=== PATIENT | female | born 1950 | race Caucasian/White ===

== ENCOUNTER 2018-09-14 07:32 | Inpatient (IN) ==
[2018-09-14] MEDS ORDERED: ALBUTEROL/IPRATROPIUM 3 ML NEB RESP TX STA (08:08)
[2018-09-14 08:40] LABS: Basophils # 0.1 10*3/uL (0.0-0.2); Basophils % 0.4 % (0.0-0.8); Eosinophils # 0.1 10*3/uL (0.0-0.87); Eosinophils % 0.4 % (0.00-10.9); Hematocrit 43.2 VOL% (35.7-47.0); Immature Granulocytes % 0.8 %; Immature Granulocytes Absolute 0.14 #; Lymphocytes # 0.9 10*3/uL (1.4-4.0); Mean Corpuscular HGB Conc 32.4 GM/DL (32-36); Mean Corpuscular Hemoglobin 29 PG (27-34); Mean Corpuscular Volume 90.2 FL (87-102); Mean Platelet Volume 10.1 FL (9.6-12.0); Monocytes # 0.9 10*3/uL (0.11-0.8); Monocytes % 5.3 % (1.7-12.7); Neutrophils # 15.1 10*3/uL (1.4-7.4); Neutrophils % 88.1 % (38.7-73.9); Platelet Count 189 T/CUMM (130-400); Red Blood Count 4.79 MC/CUMM (3.8-5.5); Red Cell Distribution Width 13.6 % (9.3-17.3); White Blood Count 17.1 T/CUMM (4-12)
[2018-09-14] MEDS ORDERED: LEVOFLOXACIN INJ 500 MG in PREMIX 1 EACH IV STA (08:40)
[2018-09-14 10:32] LABS: Albumin 3.3 G/DL (3.4-5.0); Bilirubin,Total 1.1 MG/DL (0.2-1.0); Calcium 8.7 MG/DL (8.5-10.1); Osmolality,Calculated 283.8 MOS/KG (273-304); Potassium 3.6 MMOL/L (3.5-5.1); Total Protein 7.5 G/DL (6.4-8.3)
[2018-09-14] MEDS ORDERED: SODIUM CHLORIDE 0.9% 500 ML IV STA ×2 (10:43→12:19)
[2018-09-14] MEDS: NEBIVOLOL 5 MG TABLET PO SCH (11:42)
[2018-09-14] MEDS ORDERED: ACETAMINOPHEN 325 MG TABLET PO PRN (12:50)
[2018-09-14] MEDS ORDERED: ALBUTEROL/IPRATROPIUM 3 ML NEB RESP TX PRN (12:50)
[2018-09-14] MEDS ORDERED: ONDANSETRON 4 MG/2 ML VIAL IV PRN (12:50)
[2018-09-14] MEDS ORDERED: MEROPENEM 1,000 MG in SODIUM CHLORIDE 0.9% 100 ML IV STA (12:50)
[2018-09-14] MEDS: ALBUTEROL/IPRATROPIUM 3 ML NEB RESP TX SCH ×2 (13:02→20:14)
[2018-09-14] MEDS: SODIUM CHLORIDE 0.9% 1,000 ML IV SCH (14:55)
[2018-09-14] MEDS: methylPREDNISolone SOD SUC 40 MG/1 ML VIAL IV SCH (14:58)
[2018-09-14] MEDS: PANTOPRAZOLE 40 MG TABLET PO SCH (14:59)
[2018-09-14 18:19] LABS: Free T4 (Free Thyroxine) 1.16 NG/DL (0.76-1.46); Thyroid Stimulating Hormone 6.69 uIU/ml (0.358-3.74)
[2018-09-14] MEDS: GABAPENTIN 300 MG CAPSULE PO SCH (21:40)
[2018-09-14] MEDS: MEROPENEM 1,000 MG in SODIUM CHLORIDE 0.9% 100 ML IV SCH (21:41)
[2018-09-15] MEDS: ALBUTEROL/IPRATROPIUM 3 ML NEB RESP TX SCH ×4 (01:06→19:16)
[2018-09-15] MEDS: methylPREDNISolone SOD SUC 40 MG/1 ML VIAL IV SCH ×2 (01:10→17:24)
[2018-09-15] MEDS: SODIUM CHLORIDE 0.9% 1,000 ML IV SCH ×2 (02:36→17:25)
[2018-09-15 04:48] LABS: Basophils % 0.3 % (0.0-0.8); Hematocrit 39.7 VOL% (35.7-47.0); Hemoglobin 12.5 GM/DL (12.0-16.0); Immature Granulocytes % 0.7 %; Immature Granulocytes Absolute 0.08 #; Lymphocytes # 0.5 10*3/uL (1.4-4.0); Lymphocytes % 3.9 % (21.3-54.2); Mean Corpuscular HGB Conc 31.5 GM/DL (32-36); Mean Corpuscular Hemoglobin 29 PG (27-34); Mean Corpuscular Volume 91.7 FL (87-102); Mean Platelet Volume 10.2 FL (9.6-12.0); Monocytes # 0.4 10*3/uL (0.11-0.8); Monocytes % 3.3 % (1.7-12.7); Neutrophils % 91.8 % (38.7-73.9); Platelet Count 151 T/CUMM (130-400); Red Blood Count 4.33 MC/CUMM (3.8-5.5); Red Cell Distribution Width 13.9 % (9.3-17.3); White Blood Count 11.9 T/CUMM (4-12)
[2018-09-15 05:04] LABS: Blood Urea Nitrogen 25 MG/DL (7-18); Calcium 8.2 MG/DL (8.5-10.1); Glucose 162 MG/DL (74-106); Osmolality,Calculated 286.4 MOS/KG (273-304); Potassium 4.1 MMOL/L (3.5-5.1); Sodium 140 MMOL/L (136-145); Troponin I < 0.015 NG/ML (0.00-0.045)
[2018-09-15 05:16] LABS: Eosinophils 1 % (0-10); Hypochromasia 1+; Lymphocytes 2 % (20-55); Ovalocytes Slight; Platelet Estimate Adequate; Segmented Neutrophils 95 % (50-85); Total Cells Counted 100
[2018-09-15] MEDS ORDERED: LEVOTHYROXINE 112 MCG TABLET PO SCH (06:30)
[2018-09-15] MEDS: LEVOFLOXACIN INJ 500 MG in PREMIX 1 EACH IV SCH (09:23)
[2018-09-15] MEDS: NEBIVOLOL 5 MG TABLET PO SCH (09:25)
[2018-09-15] MEDS: GABAPENTIN 300 MG CAPSULE PO SCH ×2 (09:25→21:45)
[2018-09-15] MEDS: PANTOPRAZOLE 40 MG TABLET PO SCH (09:25)
[2018-09-15] MEDS ORDERED: ENOXAPARIN 40 MG/0.4 ML SYRINGE SUBCUT ONE (09:41)
[2018-09-15] MEDS: MEROPENEM 1,000 MG in SODIUM CHLORIDE 0.9% 100 ML IV SCH ×2 (10:59→21:46)
[2018-09-16] MEDS: SODIUM CHLORIDE 0.9% 1,000 ML IV SCH ×3 (01:29→14:55)
[2018-09-16] MEDS: methylPREDNISolone SOD SUC 40 MG/1 ML VIAL IV SCH ×2 (01:31→12:11)
[2018-09-16] MEDS: ALBUTEROL/IPRATROPIUM 3 ML NEB RESP TX SCH ×4 (01:53→18:51)
[2018-09-16 04:37] LABS: Basophils % 0.2 % (0.0-0.8); Hematocrit 38.8 VOL% (35.7-47.0); Hemoglobin 12.1 GM/DL (12.0-16.0); Immature Granulocytes Absolute 0.13 #; Lymphocytes # 0.4 10*3/uL (1.4-4.0); Lymphocytes % 3.1 % (21.3-54.2); Mean Corpuscular HGB Conc 31.2 GM/DL (32-36); Mean Corpuscular Hemoglobin 29 PG (27-34); Mean Corpuscular Volume 93.5 FL (87-102); Mean Platelet Volume 10.5 FL (9.6-12.0); Monocytes # 0.4 10*3/uL (0.11-0.8); Monocytes % 3.1 % (1.7-12.7); Neutrophils # 11.5 10*3/uL (1.4-7.4); Neutrophils % 92.6 % (38.7-73.9); Platelet Count 160 T/CUMM (130-400); Red Blood Count 4.15 MC/CUMM (3.8-5.5); Red Cell Distribution Width 13.9 % (9.3-17.3); White Blood Count 12.4 T/CUMM (4-12)
[2018-09-16 04:57] LABS: Calcium 7.9 MG/DL (8.5-10.1); INR 1.1; Osmolality,Calculated 292.1 MOS/KG (273-304); PT Patient Result 11.6 SECS; Partial Thromboplastin Time 27.8 SECS (0-40); Potassium 4.2 MMOL/L (3.5-5.1)
[2018-09-16 05:02] LABS: Hypochromasia 1+; Lymphocytes 2 % (20-55); Ovalocytes Slight; Platelet Estimate Adequate; Segmented Neutrophils 97 % (50-85); Total Cells Counted 100
[2018-09-16] MEDS ORDERED: MEPERIDINE 50 MG/1 ML VIAL IM ONE (08:00)
[2018-09-16] MEDS ORDERED: LIDOCAINE 1% 20 ML VIAL MISC INJ ONE (08:00)
[2018-09-16] MEDS ORDERED: LIDOCAINE 2% VISCOUS 100 ML BOTTLE SWISH/SPIT ONE (08:00)
[2018-09-16] MEDS ORDERED: diphenhydrAMINE 50 MG/1 ML VIAL IM ONE (08:00)
[2018-09-16] MEDS ORDERED: LIDOCAINE 2% 20 ML VIAL RESP TX ONE (08:00)
[2018-09-16] MEDS ORDERED: BENZONATATE 100 MG CAPSULE PO ONE (08:00)
[2018-09-16] MEDS: MEROPENEM 1,000 MG in SODIUM CHLORIDE 0.9% 100 ML IV SCH ×2 (10:42→22:39)
[2018-09-16] MEDS: GABAPENTIN 300 MG CAPSULE PO SCH ×2 (12:10→22:38)
[2018-09-16] MEDS: NEBIVOLOL 5 MG TABLET PO SCH (12:10)
[2018-09-16] MEDS: PANTOPRAZOLE 40 MG TABLET PO SCH (12:10)
[2018-09-16] MEDS: LEVOFLOXACIN INJ 500 MG in PREMIX 1 EACH IV SCH (12:10)
[2018-09-16] MEDS ORDERED: RIVAROXABAN 20 MG TABLET PO SCH (17:00)
[2018-09-17] MEDS: ALBUTEROL/IPRATROPIUM 3 ML NEB RESP TX SCH ×2 (00:20→08:08)
[2018-09-17] MEDS: SODIUM CHLORIDE 0.9% 1,000 ML IV SCH (00:32)
[2018-09-17] MEDS: methylPREDNISolone SOD SUC 40 MG/1 ML VIAL IV SCH (00:33)
[2018-09-17 04:04] VITALS: BP 147/70
[2018-09-17 04:38] LABS: Basophils % 0.2 % (0.0-0.8); Hematocrit 38.8 VOL% (35.7-47.0); Hemoglobin 11.9 GM/DL (12.0-16.0); Immature Granulocytes % 1.5 %; Immature Granulocytes Absolute 0.19 #; Lymphocytes # 0.4 10*3/uL (1.4-4.0); Lymphocytes % 3.2 % (21.3-54.2); Mean Corpuscular HGB Conc 30.7 GM/DL (32-36); Mean Corpuscular Hemoglobin 29 PG (27-34); Mean Corpuscular Volume 94.4 FL (87-102); Mean Platelet Volume 10.6 FL (9.6-12.0); Monocytes # 0.5 10*3/uL (0.11-0.8); Monocytes % 3.8 % (1.7-12.7); Neutrophils # 11.8 10*3/uL (1.4-7.4); Neutrophils % 91.3 % (38.7-73.9); Platelet Count 173 T/CUMM (130-400); Red Blood Count 4.11 MC/CUMM (3.8-5.5)
[2018-09-17 05:03] LABS: Lymphocytes 3 % (20-55); Platelet Estimate Adequate; Polychromasia Few; Segmented Neutrophils 97 % (50-85); Total Cells Counted 100
[2018-09-17 05:06] LABS: Calcium 8.1 MG/DL (8.5-10.1); Osmolality,Calculated 289.3 MOS/KG (273-304); Potassium 4.3 MMOL/L (3.5-5.1)
[2018-09-17] MEDS: NEBIVOLOL 5 MG TABLET PO SCH (09:56)
[2018-09-17] MEDS: LEVOFLOXACIN INJ 500 MG in PREMIX 1 EACH IV SCH (09:56)
[2018-09-17] MEDS: MEROPENEM 1,000 MG in SODIUM CHLORIDE 0.9% 100 ML IV SCH (09:56)
[2018-09-17] MEDS: GABAPENTIN 300 MG CAPSULE PO SCH (09:56)
[2018-09-17] MEDS: PANTOPRAZOLE 40 MG TABLET PO SCH (09:56)
[2018-09-19 11:46] LABS: S. Pneumo Serotype 1 5.6 mcg/mL (>=2.3); S. Pneumo Serotype 10A 10.7 mcg/mL (>=2.9); S. Pneumo Serotype 11A 3.2 mcg/mL (>=2.4); S. Pneumo Serotype 12F 2.2 mcg/mL (>=0.6); S. Pneumo Serotype 14 4.6 mcg/mL (>=7.0); S. Pneumo Serotype 15B 4.1 mcg/mL (>=3.3); S. Pneumo Serotype 2 17.8 mcg/mL (>=1.0); S. Pneumo Serotype 20 3.2 mcg/mL (>=1.3); S. Pneumo Serotype 22F 20.5 mcg/mL (>=7.2); S. Pneumo Serotype 23F 25.4 mcg/mL (>=8.0); S. Pneumo Serotype 3 5.5 mcg/mL (>=1.8); S. Pneumo Serotype 33F 4.3 mcg/mL (>=1.7); S. Pneumo Serotype 7F 8.7 mcg/mL (>=3.2); S. Pneumo Serotype 8 3.5 mcg/mL (>=2.9); S. Pneumo Serotype 9N 6.6 mcg/mL (>=9.2); S. Pneumo Serotype 9V 8.5 mcg/mL (>=2.6)
== END 2018-09-17 11:59 | disposition home or self-care (01) | DRG 178 ==
LOC: N.ED 07:32 → N.EDINP 09:07 → N.2E 12:42
PROVIDERS: ADMIT Internal Medicine; ATTEND Internal Medicine

== ENCOUNTER 2019-02-24 11:51 | Inpatient (IN) ==
[2019-02-24] MEDS ORDERED: ONDANSETRON 4 MG/2 ML VIAL IV PRN (14:57)
[2019-02-24] MEDS ORDERED: ALBUTEROL 2.5 MG/3 ML NEB RESP TX PRN (14:57)
[2019-02-24] MEDS ORDERED: NOREPINEPHRINE 8 MG in SODIUM CHLORIDE 0.9% 242 ML IV SCH (15:00)
[2019-02-24] MEDS ORDERED: SODIUM CHLORIDE 0.9% 1,000 ML IV PRN (15:06)
[2019-02-24 15:57] LABS: Basophils % 0.3 % (0.0-0.8); Eosinophils # 0.1 10*3/uL (0.0-0.87); Eosinophils % 1.6 % (0.00-10.9); Immature Granulocytes % 0.5 %; Immature Granulocytes Absolute 0.04 #; Lymphocytes # 0.7 10*3/uL (1.4-4.0); Lymphocytes % 9.7 % (21.3-54.2); Mean Corpuscular HGB Conc 26.8 GM/DL (32-36); Mean Corpuscular Volume 81.7 FL (87-102); Mean Platelet Volume 10.3 FL (9.6-12.0); Monocytes % 7.2 % (1.7-12.7); NRBC # 0.02 10*3/uL; Neutrophils % 80.7 % (38.7-73.9); Platelet Count 163 T/CUMM (130-400); Red Blood Count 2.19 MC/CUMM (3.8-5.5); Red Cell Distribution Width 16.9 % (9.3-17.3); White Blood Count 7.4 T/CUMM (4-12)
[2019-02-24 16:03] LABS: Hemoglobin 4.8 GM/DL (12.0-16.0)
[2019-02-24 16:04] LABS: Hematocrit 17.9 VOL% (35.7-47.0)
[2019-02-24 16:05] LABS: Hemoglobin 4.8 GM/DL (12.0-16.0)
[2019-02-24 16:06] LABS: Hematocrit 17.9 VOL% (35.7-47.0); INR 1.3; PT Patient Result 13.7 SECS; Partial Thromboplastin Time 29.7 SECS (0-40)
[2019-02-24] MEDS: SODIUM CHLORIDE 0.9% 1,000 ML IV SCH (16:07)
[2019-02-24] MEDS: PANTOPRAZOLE 40 MG VIAL IV SCH ×2 (16:12→23:09)
[2019-02-24 16:34] LABS: Thyroid Stimulating Hormone 6.18 uIU/ml (0.358-3.74)
[2019-02-24 18:04] LABS: Polychromasia Few; Target Cells 1+
[2019-02-24 18:05] LABS: Hypochromasia 2+; Microcytosis 1+
[2019-02-24 18:06] LABS: Platelet Estimate Adequate; Tear Drop Cells Few
[2019-02-24 18:53] LABS: Calcium 8.2 MG/DL (8.5-10.1); Osmolality,Calculated 299.1 MOS/KG (273-304)
[2019-02-24] MEDS ORDERED: ALBUTEROL/IPRATROPIUM 3 ML NEB RESP TX SCH (19:00)
[2019-02-24] MEDS: ALBUTEROL/IPRATROPIUM 3 ML NEB RESP TX SCH (19:15)
[2019-02-24] MEDS: ACETAMINOPHEN 325 MG TABLET PO PRN (23:07)
[2019-02-25] MEDS: ALBUTEROL/IPRATROPIUM 3 ML NEB RESP TX SCH ×4 (01:05→19:34)
[2019-02-25 01:06] LABS: Hematocrit 26.1 VOL% (35.7-47.0); Hemoglobin 7.9 GM/DL (12.0-16.0)
[2019-02-25] MEDS: SODIUM CHLORIDE 0.9% 1,000 ML IV SCH (04:49)
[2019-02-25 05:41] LABS: Basophils % 0.5 % (0.0-0.8); Eosinophils # 0.2 10*3/uL (0.0-0.87); Eosinophils % 2.4 % (0.00-10.9); Hematocrit 25.6 VOL% (35.7-47.0); Hemoglobin 7.8 GM/DL (12.0-16.0); Immature Granulocytes % 0.6 %; Immature Granulocytes Absolute 0.05 #; Lymphocytes # 1.2 10*3/uL (1.4-4.0); Lymphocytes % 14.3 % (21.3-54.2); Mean Corpuscular HGB Conc 30.5 GM/DL (32-36); Mean Corpuscular Volume 82.8 FL (87-102); Mean Platelet Volume 9.8 FL (9.6-12.0); Monocytes % 7.6 % (1.7-12.7); Neutrophils % 74.6 % (38.7-73.9); Platelet Count 166 T/CUMM (130-400); Red Blood Count 3.09 MC/CUMM (3.8-5.5); Red Cell Distribution Width 16.6 % (9.3-17.3)
[2019-02-25 08:49] LABS: Hemoglobin 8.2 GM/DL (12.0-16.0)
[2019-02-25] MEDS ORDERED: FUROSEMIDE 40 MG TABLET PO ONE (09:02)
[2019-02-25] MEDS ORDERED: SODIUM CHLORIDE 0.9% 1,000 ML IV PRN (09:03)
[2019-02-25] MEDS ORDERED: GLUCAGON 1 MG VIAL IM PRN (09:05)
[2019-02-25] MEDS ORDERED: DEXTROSE 10% 25 GM/250 ML BAG IV PRN (09:05)
[2019-02-25 09:12] LABS: Calcium 8.4 MG/DL (8.5-10.1); Osmolality,Calculated 298.8 MOS/KG (273-304)
[2019-02-25] MEDS: NEBIVOLOL 5 MG TABLET PO SCH (10:05)
[2019-02-25] MEDS: PANTOPRAZOLE 40 MG VIAL IV SCH ×2 (10:05→20:27)
[2019-02-25] MEDS: INSULIN REGULAR 100 UNIT/ML SUBCUT SCH ×3 (11:40→21:11)
[2019-02-25] MEDS ORDERED: IMIPRAMINE HCL 10 MG PO PRN (12:01)
[2019-02-25 12:47] LABS: Apearance,Urine CLEAR (Clear); Bacteria,Urine Many /HPF (Few); Bilirubin,Urine Negative (Negative); Blood, Urine Negative (Negative); Glucose,Urine (UA) Negative (Negative); Ketones,Urine Negative (Negative); Mucus,Urine Occasional /LPF (Occasional); Nitrite,Urine Negative (Negative); Protein,Urine Negative; RBC,Urine 1 /HPF (0-4); Squamous Epithelial Cell,Urine Occasional /HPF (0-10); Urine Color Yellow (Yellow); Urine Specific Gravity 1.012 (1.001-1.035); Urine Urobilinogen < 2.0 EU/DL (0.2-1.0); WBC,Urine 29 /HPF (0-6)
[2019-02-25] MEDS: GABAPENTIN 300 MG CAPSULE PO SCH ×2 (13:20→20:27)
[2019-02-25] MEDS: LEVOTHYROXINE 125 MCG TABLET PO SCH (13:20)
[2019-02-25] MEDS: ALLOPURINOL 100 MG TABLET PO SCH (13:20)
[2019-02-25] MEDS: MONTELUKAST 10 MG TABLET PO SCH (13:20)
[2019-02-25] MEDS: ACETAMINOPHEN 325 MG TABLET PO PRN (17:51)
[2019-02-26] MEDS: ALBUTEROL/IPRATROPIUM 3 ML NEB RESP TX SCH ×4 (01:14→19:24)
[2019-02-26 01:54] LABS: Basophils % 0.5 % (0.0-0.8); Eosinophils # 0.2 10*3/uL (0.0-0.87); Eosinophils % 2.9 % (0.00-10.9); Hematocrit 25.3 VOL% (35.7-47.0); Hemoglobin 7.3 GM/DL (12.0-16.0); Immature Granulocytes % 0.8 %; Immature Granulocytes Absolute 0.06 #; Lymphocytes # 1.1 10*3/uL (1.4-4.0); Lymphocytes % 14.1 % (21.3-54.2); Mean Corpuscular HGB Conc 28.9 GM/DL (32-36); Mean Corpuscular Volume 84.3 FL (87-102); Mean Platelet Volume 9.9 FL (9.6-12.0); Monocytes % 7.6 % (1.7-12.7); Neutrophils % 74.1 % (38.7-73.9); Platelet Count 161 T/CUMM (130-400); Red Cell Distribution Width 17.1 % (9.3-17.3); White Blood Count 7.9 T/CUMM (4-12)
[2019-02-26] MEDS ORDERED: SODIUM CHLORIDE 0.9% 1,000 ML IV PRN (02:06)
[2019-02-26 02:11] LABS: Osmolality,Calculated 290.1 MOS/KG (273-304)
[2019-02-26] MEDS: INSULIN REGULAR 100 UNIT/ML SUBCUT SCH ×4 (07:42→22:43)
[2019-02-26] MEDS: MONTELUKAST 10 MG TABLET PO SCH (08:53)
[2019-02-26] MEDS: NEBIVOLOL 5 MG TABLET PO SCH (08:53)
[2019-02-26] MEDS: ALLOPURINOL 100 MG TABLET PO SCH (08:53)
[2019-02-26] MEDS: GABAPENTIN 300 MG CAPSULE PO SCH ×2 (08:53→21:19)
[2019-02-26] MEDS: LEVOTHYROXINE 125 MCG TABLET PO SCH (08:53)
[2019-02-26] MEDS: PANTOPRAZOLE 40 MG VIAL IV SCH ×2 (10:17→21:19)
[2019-02-26 10:47] LABS: Hemoglobin 9.2 GM/DL (12.0-16.0)
[2019-02-26] MEDS: cefTRIAXone 1,000 MG in SYRINGE 1 EACH IV SCH (11:44)
[2019-02-27] MEDS: ALBUTEROL/IPRATROPIUM 3 ML NEB RESP TX SCH ×4 (00:03→19:15)
[2019-02-27 04:55] LABS: Basophils % 0.4 % (0.0-0.8); Eosinophils # 0.2 10*3/uL (0.0-0.87); Eosinophils % 2.9 % (0.00-10.9); Hematocrit 30.8 VOL% (35.7-47.0); Hemoglobin 9.3 GM/DL (12.0-16.0); Immature Granulocytes % 0.6 %; Immature Granulocytes Absolute 0.04 #; Lymphocytes % 13.8 % (21.3-54.2); Mean Corpuscular HGB Conc 30.2 GM/DL (32-36); Mean Corpuscular Volume 84.2 FL (87-102); Mean Platelet Volume 10.2 FL (9.6-12.0); Monocytes % 8.3 % (1.7-12.7); Platelet Count 168 T/CUMM (130-400); Red Blood Count 3.66 MC/CUMM (3.8-5.5); Red Cell Distribution Width 17.3 % (9.3-17.3); White Blood Count 7.2 T/CUMM (4-12)
[2019-02-27 05:20] LABS: Calcium 8.5 MG/DL (8.5-10.1); Osmolality,Calculated 287.8 MOS/KG (273-304)
[2019-02-27] MEDS ORDERED: LACTATED RINGERS 1,000 ML IV SCH (07:00)
[2019-02-27] MEDS ORDERED: LIDOCAINE 100 MG/5 ML SYRINGE ONE (09:00)
[2019-02-27] MEDS ORDERED: PROPOFOL 200 MG/20 ML VIAL IV ONE (09:00)
[2019-02-27] MEDS: MONTELUKAST 10 MG TABLET PO SCH (09:33)
[2019-02-27] MEDS: NEBIVOLOL 5 MG TABLET PO SCH (09:34)
[2019-02-27] MEDS: PANTOPRAZOLE 40 MG VIAL IV SCH ×2 (09:34→21:43)
[2019-02-27] MEDS: GABAPENTIN 300 MG CAPSULE PO SCH ×2 (09:34→21:42)
[2019-02-27] MEDS: ALLOPURINOL 100 MG TABLET PO SCH (09:34)
[2019-02-27] MEDS: LEVOTHYROXINE 125 MCG TABLET PO SCH (09:34)
[2019-02-27] MEDS: INSULIN REGULAR 100 UNIT/ML SUBCUT SCH ×4 (09:36→22:54)
[2019-02-27] MEDS: cefTRIAXone 1,000 MG in SYRINGE 1 EACH IV SCH (12:00)
[2019-02-28] MEDS: ALBUTEROL/IPRATROPIUM 3 ML NEB RESP TX SCH ×2 (01:02→07:15)
[2019-02-28 05:10] LABS: Calcium 8.8 MG/DL (8.5-10.1)
[2019-02-28] MEDS: INSULIN REGULAR 100 UNIT/ML SUBCUT SCH (07:10)
[2019-02-28 08:07] VITALS: BP 161/89
[2019-02-28 08:10] LABS: Basophils # 0.1 10*3/uL (0.0-0.2); Basophils % 0.6 % (0.0-0.8); Eosinophils # 0.3 10*3/uL (0.0-0.87); Hematocrit 34.5 VOL% (35.7-47.0); Hemoglobin 10.2 GM/DL (12.0-16.0); Immature Granulocytes % 0.5 %; Immature Granulocytes Absolute 0.04 #; Lymphocytes # 0.6 10*3/uL (1.4-4.0); Lymphocytes % 7.5 % (21.3-54.2); Mean Corpuscular HGB Conc 29.6 GM/DL (32-36); Mean Corpuscular Volume 85.8 FL (87-102); Mean Platelet Volume 10.3 FL (9.6-12.0); Monocytes % 7.5 % (1.7-12.7); Neutrophils % 80.9 % (38.7-73.9); Platelet Count 185 T/CUMM (130-400); Red Blood Count 4.02 MC/CUMM (3.8-5.5); White Blood Count 8.4 T/CUMM (4-12)
[2019-02-28] MEDS: NEBIVOLOL 5 MG TABLET PO SCH (08:34)
[2019-02-28] MEDS: MONTELUKAST 10 MG TABLET PO SCH (08:35)
[2019-02-28] MEDS: ALLOPURINOL 100 MG TABLET PO SCH (08:35)
[2019-02-28] MEDS: GABAPENTIN 300 MG CAPSULE PO SCH (08:35)
[2019-02-28] MEDS: LEVOTHYROXINE 125 MCG TABLET PO SCH (08:35)
[2019-02-28] MEDS: cefTRIAXone 1,000 MG in SYRINGE 1 EACH IV SCH (08:35)
[2019-02-28] MEDS: PANTOPRAZOLE 40 MG VIAL IV SCH (09:47)
== END 2019-02-28 10:44 | disposition home or self-care (01) | DRG 813 ==
LOC: N.CC 14:12 → SUATTDRO 14:12 → N.2E 02-25 14:11
PROVIDERS: ADMIT Internal Medicine; ATTEND Internal Medicine Geriatric Medicine

== ENCOUNTER 2019-03-01 06:19 | Observation (INO) ==
[2019-03-01 07:02] LABS: Basophils # 0.1 10*3/uL (0.0-0.2); Basophils % 0.4 % (0.0-0.8); Eosinophils # 0.1 10*3/uL (0.0-0.87); Hematocrit 36.1 VOL% (35.7-47.0); Hemoglobin 10.7 GM/DL (12.0-16.0); Immature Granulocytes % 0.5 %; Immature Granulocytes Absolute 0.06 #; Lymphocytes # 0.4 10*3/uL (1.4-4.0); Lymphocytes % 3.3 % (21.3-54.2); Mean Corpuscular HGB Conc 29.6 GM/DL (32-36); Mean Corpuscular Volume 85.3 FL (87-102); Mean Platelet Volume 9.9 FL (9.6-12.0); Monocytes % 5.1 % (1.7-12.7); Neutrophils % 89.7 % (38.7-73.9); Platelet Count 174 T/CUMM (130-400); Red Blood Count 4.23 MC/CUMM (3.8-5.5); White Blood Count 11.7 T/CUMM (4-12)
[2019-03-01] MEDS ORDERED: FUROSEMIDE 100 MG/10 ML VIAL IV STA (07:05)
[2019-03-01] MEDS ORDERED: DILTIAZEM 50 MG/10 ML VIAL IV STA (07:19)
[2019-03-01 07:20] LABS: Eosinophils 1 % (0-10); Lymphocytes 5 % (20-55); Segmented Neutrophils 89 % (50-85); Total Cells Counted 100
[2019-03-01 07:21] LABS: Hypochromasia 1+; Platelet Estimate Normal
[2019-03-01 07:23] LABS: Albumin 3.5 G/DL (3.4-5.0); Calcium 9.3 MG/DL (8.5-10.1); Osmolality,Calculated 286.1 MOS/KG (273-304); Total Protein 6.9 G/DL (6.4-8.3)
[2019-03-01 07:29] LABS: INR 1.1; PT Patient Result 11.8 SECS; Partial Thromboplastin Time 27.8 SECS (0-40)
[2019-03-01] MEDS ORDERED: dilTIAZem Drip 125 MG/125 ML PREMIX IV SCH (07:30)
[2019-03-01 07:31] LABS: ABG Base Excess 3.3 MMOL/L (-2.5-2.5); ABG HCO3 27.4 MMOL/L (20-26); ABG Oxygen Saturation 98.1 % (95-100); ABG PCO2 59.5 MM HG (35-48); ABG PH 7.322 (7.35-7.45)
[2019-03-01] MEDS ORDERED: ONDANSETRON 4 MG/2 ML VIAL IV PRN (11:30)
[2019-03-01] MEDS ORDERED: ACETAMINOPHEN 325 MG TABLET PO PRN (11:30)
[2019-03-01] MEDS ORDERED: IMIPRAMINE HCL 10 MG PO PRN (11:34)
[2019-03-01] MEDS ORDERED: DOXAZOSIN 2 MG TABLET PO SCH (13:00)
[2019-03-01] MEDS: POTASSIUM CHLORIDE 10 MEQ TABLET PO SCH ×2 (14:09→21:06)
[2019-03-01] MEDS: AMOXICILLIN/CLAV 875 MG TABLET PO SCH (14:09)
[2019-03-01] MEDS: DOXAZOSIN 1 MG TABLET PO SCH (14:14)
[2019-03-01] MEDS: SILDENAFIL 20 MG TABLET PO SCH ×2 (14:14→21:16)
[2019-03-01] MEDS: ALBUTEROL/IPRATROPIUM 3 ML NEB RESP TX SCH ×3 (14:14→19:39)
[2019-03-01] MEDS: FUROSEMIDE 40 MG/4 ML VIAL IV SCH (16:28)
[2019-03-01] MEDS: GABAPENTIN 300 MG CAPSULE PO SCH (21:08)
[2019-03-01] MEDS: PANTOPRAZOLE 40 MG TABLET PO SCH (21:11)
[2019-03-01] MEDS: NEBIVOLOL 5 MG TABLET PO SCH (21:16)
[2019-03-01] MEDS: VALSARTAN/HCTZ 160-12.5 MG TABLET PO SCH (21:16)
[2019-03-02] MEDS: AMOXICILLIN/CLAV 875 MG TABLET PO SCH ×2 (00:29→12:33)
[2019-03-02] MEDS: ALBUTEROL/IPRATROPIUM 3 ML NEB RESP TX SCH ×4 (07:20→20:07)
[2019-03-02] MEDS: MONTELUKAST 10 MG TABLET PO SCH (08:51)
[2019-03-02] MEDS: LEVOTHYROXINE 125 MCG TABLET PO SCH (08:51)
[2019-03-02] MEDS: PANTOPRAZOLE 40 MG TABLET PO SCH ×2 (08:54→21:01)
[2019-03-02] MEDS: DOXAZOSIN 1 MG TABLET PO SCH (08:54)
[2019-03-02] MEDS: FUROSEMIDE 40 MG/4 ML VIAL IV SCH ×2 (08:55→16:19)
[2019-03-02] MEDS: NEBIVOLOL 5 MG TABLET PO SCH ×2 (08:55→21:01)
[2019-03-02] MEDS: ALLOPURINOL 100 MG TABLET PO SCH (08:56)
[2019-03-02] MEDS: SILDENAFIL 20 MG TABLET PO SCH ×3 (08:56→21:06)
[2019-03-02] MEDS: GABAPENTIN 300 MG CAPSULE PO SCH ×2 (08:56→21:01)
[2019-03-02] MEDS ORDERED: POTASSIUM CHLORIDE 10 MEQ TABLET PO SCH (09:00)
[2019-03-02 13:13] LABS: Calcium 8.8 MG/DL (8.5-10.1); Osmolality,Calculated 285.1 MOS/KG (273-304)
[2019-03-02] MEDS: POTASSIUM CHLORIDE 20 MEQ TABLET PO PRN ×4 (14:02→21:00)
[2019-03-02] MEDS ORDERED: MAGNESIUM HYDROXIDE SUSP 30 ML UDCUP PO PRN (18:50)
[2019-03-03] MEDS: AMOXICILLIN/CLAV 875 MG TABLET PO SCH ×2 (02:46→12:25)
[2019-03-03] MEDS ORDERED: ALBUTEROL/IPRATROPIUM 3 ML NEB RESP TX ONE (03:17)
[2019-03-03 05:01] LABS: Basophils % 0.5 % (0.0-0.8); Eosinophils # 0.2 10*3/uL (0.0-0.87); Eosinophils % 2.9 % (0.00-10.9); Hematocrit 31.2 VOL% (35.7-47.0); Hemoglobin 9.2 GM/DL (12.0-16.0); Immature Granulocytes % 0.4 %; Immature Granulocytes Absolute 0.02 #; Lymphocytes # 0.6 10*3/uL (1.4-4.0); Lymphocytes % 10.2 % (21.3-54.2); Mean Corpuscular HGB Conc 29.5 GM/DL (32-36); Mean Corpuscular Volume 84.3 FL (87-102); Mean Platelet Volume 9.7 FL (9.6-12.0); Platelet Count 141 T/CUMM (130-400); Red Cell Distribution Width 18.2 % (9.3-17.3); White Blood Count 5.6 T/CUMM (4-12)
[2019-03-03 05:13] LABS: Calcium 8.9 MG/DL (8.5-10.1)
[2019-03-03] MEDS: ALBUTEROL/IPRATROPIUM 3 ML NEB RESP TX SCH (07:44)
[2019-03-03] MEDS: FUROSEMIDE 40 MG/4 ML VIAL IV SCH (09:37)
[2019-03-03] MEDS: SILDENAFIL 20 MG TABLET PO SCH (09:38)
[2019-03-03] MEDS: DOXAZOSIN 1 MG TABLET PO SCH (09:38)
[2019-03-03] MEDS: GABAPENTIN 300 MG CAPSULE PO SCH (09:39)
[2019-03-03] MEDS: ALLOPURINOL 100 MG TABLET PO SCH (09:39)
[2019-03-03] MEDS: POTASSIUM CHLORIDE 20 MEQ TABLET PO PRN (09:39)
[2019-03-03] MEDS: VALSARTAN/HCTZ 160-12.5 MG TABLET PO SCH (09:39)
[2019-03-03] MEDS: MONTELUKAST 10 MG TABLET PO SCH (09:39)
[2019-03-03] MEDS: NEBIVOLOL 5 MG TABLET PO SCH (09:39)
[2019-03-03] MEDS: PANTOPRAZOLE 40 MG TABLET PO SCH (09:39)
[2019-03-03] MEDS: LEVOTHYROXINE 125 MCG TABLET PO SCH (09:39)
[2019-03-03] MEDS: POTASSIUM CHLORIDE 10 MEQ TABLET PO SCH ×2 (12:26→12:29)
[2019-03-03 12:27] VITALS: BP 121/69
[2019-03-03] MEDS ORDERED: POLYETHYLENE GLYCOL POWDER 17 GM PACK PO SCH (21:00)
== END 2019-03-03 13:49 | disposition home health service (06) ==
LOC: EDBD → EDUNIT# → N.ED 06:19 → N.EDINP 06:19 → N.TELES 12:25
PROVIDERS: ADMIT Internal Medicine Geriatric Medicine; ATTEND Internal Medicine Geriatric Medicine

== ENCOUNTER 2019-06-14 10:51 | Inpatient (IN) ==
[2019-06-14] MEDS ORDERED: SODIUM CHLORIDE 0.9% 1,000 ML IV STA (11:14)
[2019-06-14] MEDS ORDERED: ONDANSETRON 4 MG/2 ML VIAL IV STA (11:14)
[2019-06-14] MEDS ORDERED: PANTOPRAZOLE 40 MG VIAL IV STA (11:14)
[2019-06-14 11:43] LABS: Basophils % 0.5 % (0.0-0.8); Eosinophils # 0.1 10*3/uL (0.0-0.87); Eosinophils % 0.8 % (0.00-10.9); Hematocrit 23.8 VOL% (35.7-47.0); Hemoglobin 7.2 GM/DL (12.0-16.0); Immature Granulocytes % 0.7 %; Immature Granulocytes Absolute 0.04 #; Lymphocytes # 0.8 10*3/uL (1.4-4.0); Lymphocytes % 13.9 % (21.3-54.2); Mean Corpuscular HGB Conc 30.3 GM/DL (32-36); Mean Corpuscular Volume 94.8 FL (87-102); Mean Platelet Volume 9.8 FL (9.6-12.0); Monocytes % 7.9 % (1.7-12.7); Neutrophils % 76.2 % (38.7-73.9); Platelet Count 163 T/CUMM (130-400); Red Blood Count 2.51 MC/CUMM (3.8-5.5); Red Cell Distribution Width 19.6 % (9.3-17.3)
[2019-06-14 11:52] LABS: INR 1.1; PT Patient Result 11.7 SECS (9.6-12.2); Partial Thromboplastin Time 27.5 SECS (20.8-36.0)
[2019-06-14 12:04] LABS: Albumin 3.2 G/DL (3.4-5.0); Bilirubin,Total 0.5 MG/DL (0.2-1.0); Calcium 9.4 MG/DL (8.5-10.1); Osmolality,Calculated 289.3 MOS/KG (273-304); Total Protein 6.7 G/DL (6.4-8.3)
[2019-06-14] MEDS ORDERED: SODIUM CHLORIDE 0.9% 1,000 ML IV PRN (13:25)
[2019-06-14] MEDS ORDERED: ONDANSETRON 4 MG/2 ML VIAL IV PRN (13:25)
[2019-06-14] MEDS ORDERED: ACETAMINOPHEN 325 MG TABLET PO PRN (13:25)
[2019-06-14] MEDS ORDERED: PANTOPRAZOLE 40 MG VIAL IV SCH (13:30)
[2019-06-14] MEDS ORDERED: DEXTROSE 50% 25 GM/50 ML VIAL IV PRN (13:40)
[2019-06-14] MEDS ORDERED: GLUCAGON 1 MG VIAL IM PRN (13:40)
[2019-06-14] MEDS: FERROUS SULFATE 325 MG TABLET PO SCH ×2 (17:19→22:13)
[2019-06-14] MEDS: INSULIN REGULAR 100 UNIT/ML SUBCUT SCH ×2 (17:19→22:13)
[2019-06-14 18:28] LABS: Hematocrit 24.4 VOL% (35.7-47.0); Hemoglobin 7.4 GM/DL (12.0-16.0)
[2019-06-14 18:39] LABS: INR 1.1
[2019-06-14] MEDS: ALBUTEROL/IPRATROPIUM 3 ML NEB RESP TX PRN (19:08)
[2019-06-14] MEDS: ROSUVASTATIN 10 MG TABLET PO SCH (22:12)
[2019-06-14] MEDS: GABAPENTIN 300 MG CAPSULE PO SCH (22:13)
[2019-06-14] MEDS: PANTOPRAZOLE 40 MG VIAL IV SCH (22:13)
[2019-06-14 22:51] LABS: Hematocrit 25.8 VOL% (35.7-47.0)
[2019-06-15] MEDS: ALBUTEROL/IPRATROPIUM 3 ML NEB RESP TX PRN ×3 (05:14→16:20)
[2019-06-15 06:31] LABS: Basophils % 0.5 % (0.0-0.8); Eosinophils # 0.1 10*3/uL (0.0-0.87); Eosinophils % 1.8 % (0.00-10.9); Hematocrit 25.6 VOL% (35.7-47.0); Immature Granulocytes % 0.5 %; Immature Granulocytes Absolute 0.03 #; Lymphocytes # 0.7 10*3/uL (1.4-4.0); Lymphocytes % 12.4 % (21.3-54.2); Mean Corpuscular HGB Conc 31.3 GM/DL (32-36); Mean Corpuscular Volume 93.1 FL (87-102); Mean Platelet Volume 10.3 FL (9.6-12.0); Monocytes % 8.3 % (1.7-12.7); Neutrophils % 76.5 % (38.7-73.9); Platelet Count 163 T/CUMM (130-400); Red Blood Count 2.75 MC/CUMM (3.8-5.5); Red Cell Distribution Width 18.8 % (9.3-17.3); White Blood Count 5.6 T/CUMM (4-12)
[2019-06-15 06:42] LABS: Calcium 8.9 MG/DL (8.5-10.1); Osmolality,Calculated 289.1 MOS/KG (273-304)
[2019-06-15] MEDS ORDERED: LEVOTHYROXINE 125 MCG TABLET PO SCH (07:30)
[2019-06-15 08:09] LABS: Hematocrit 25.3 VOL% (35.7-47.0); Hemoglobin 7.8 GM/DL (12.0-16.0)
[2019-06-15] MEDS ORDERED: LEVOTHYROXINE 125 MCG TABLET PO ONE (08:30)
[2019-06-15] MEDS: ALLOPURINOL 100 MG TABLET PO SCH (09:02)
[2019-06-15] MEDS: MONTELUKAST 10 MG TABLET PO SCH (09:02)
[2019-06-15] MEDS: FERROUS SULFATE 325 MG TABLET PO SCH ×3 (09:02→22:43)
[2019-06-15] MEDS: PANTOPRAZOLE 40 MG VIAL IV SCH ×2 (09:02→22:43)
[2019-06-15] MEDS: GABAPENTIN 300 MG CAPSULE PO SCH ×2 (09:02→22:43)
[2019-06-15] MEDS: INSULIN REGULAR 100 UNIT/ML SUBCUT SCH ×4 (09:03→21:35)
[2019-06-15] MEDS ORDERED: SODIUM CHLORIDE 0.9% 1,000 ML IV PRN (13:57)
[2019-06-15] MEDS ORDERED: FUROSEMIDE 20 MG/2 ML VIAL IV ONE (21:19)
[2019-06-15] MEDS: ROSUVASTATIN 10 MG TABLET PO SCH (22:42)
[2019-06-16] MEDS: ALBUTEROL/IPRATROPIUM 3 ML NEB RESP TX PRN ×2 (00:08→07:23)
[2019-06-16 00:45] LABS: Hematocrit 28.9 VOL% (35.7-47.0)
[2019-06-16 05:59] LABS: Basophils % 0.3 % (0.0-0.8); Eosinophils # 0.1 10*3/uL (0.0-0.87); Eosinophils % 2.1 % (0.00-10.9); Hematocrit 28.8 VOL% (35.7-47.0); Immature Granulocytes % 0.7 %; Immature Granulocytes Absolute 0.04 #; Lymphocytes # 0.7 10*3/uL (1.4-4.0); Lymphocytes % 12.1 % (21.3-54.2); Mean Corpuscular HGB Conc 31.3 GM/DL (32-36); Mean Platelet Volume 9.9 FL (9.6-12.0); Monocytes % 8.2 % (1.7-12.7); Neutrophils % 76.6 % (38.7-73.9); Platelet Count 176 T/CUMM (130-400); Red Blood Count 3.13 MC/CUMM (3.8-5.5); Red Cell Distribution Width 17.9 % (9.3-17.3); White Blood Count 6.1 T/CUMM (4-12)
[2019-06-16] MEDS ORDERED: LEVOTHYROXINE 125 MCG TABLET PO SCH (06:30)
[2019-06-16 06:34] LABS: Calcium 8.6 MG/DL (8.5-10.1); Osmolality,Calculated 281.4 MOS/KG (273-304)
[2019-06-16] MEDS ORDERED: LACTATED RINGERS 1,000 ML IV SCH (08:00)
[2019-06-16] MEDS ORDERED: MIDAZOLAM 2 MG/2 ML VIAL ONE (08:05)
[2019-06-16] MEDS: INSULIN REGULAR 100 UNIT/ML SUBCUT SCH ×2 (08:07→12:06)
[2019-06-16] MEDS: GABAPENTIN 300 MG CAPSULE PO SCH (09:59)
[2019-06-16] MEDS: ALLOPURINOL 100 MG TABLET PO SCH (09:59)
[2019-06-16] MEDS: PANTOPRAZOLE 40 MG VIAL IV SCH (09:59)
[2019-06-16] MEDS: MONTELUKAST 10 MG TABLET PO SCH (09:59)
[2019-06-16] MEDS: FERROUS SULFATE 325 MG TABLET PO SCH (09:59)
[2019-06-16] MEDS ORDERED: PROPOFOL 200 MG/20 ML VIAL IV ONE (10:00)
[2019-06-16] MEDS ORDERED: ETOMIDATE 20 MG/10 ML VIAL IV ONE (10:00)
[2019-06-16] MEDS ORDERED: LIDOCAINE 2% 5 ML VIAL ONE (10:00)
[2019-06-16 12:04] VITALS: BP 99/46
== END 2019-06-16 12:06 | disposition home health service (06) | DRG 813 ==
LOC: N.ED 10:51 → N.EDINP 12:37 → N.5E 16:13
PROVIDERS: ADMIT Internal Medicine; ATTEND Internal Medicine

== ENCOUNTER 2021-12-17 11:45 | Inpatient (IN) ==
[2021-12-17] MEDS ORDERED: methylPREDNISolone SOD SUC 125 MG/2 ML VIAL IV STA (12:50)
[2021-12-17] MEDS ORDERED: ALBUTEROL NEB SOLN 5 MG/ML 20 ML/BOTTLE CONT NEB SCH (13:00)
[2021-12-17 13:28] LABS: Arterial Base Excess iSTAT 20 MMOL/L (-2.5-2.5); Arterial Bicarbonate iSTAT 47.2 MMOL/L (20-26); Arterial O2 Saturation iSTAT 85 % (95-100); Arterial PCO2 iSTAT 71 MM HG (35-48); Arterial PO2 iSTAT 52 MM HG (80-95); Arterial Total CO2 iSTAT 49 MMO/L (23-27); Arterial pH iSTAT 7.431 (7.35-7.45)
[2021-12-17 13:32] LABS: Basophils % 0.3 % (0.0-0.8); Eosinophils # 0.1 10*3/uL (0.0-0.87); Eosinophils % 0.8 % (0.00-10.9); Hematocrit 27.7 VOL% (35.7-47.0); Hemoglobin 7.9 GM/DL (12.0-16.0); Immature Granulocytes % 1.1 %; Lymphocytes # 0.4 10*3/uL (1.4-4.0); Lymphocytes % 5.1 % (21.3-54.2); Mean Corpuscular HGB Conc 28.5 GM/DL (32-36); Mean Corpuscular Volume 108.6 FL (87-102); Mean Platelet Volume 10.1 FL (9.6-12.0); Monocytes # 0.5 10*3/uL (0.11-0.8); Monocytes % 5.6 % (1.7-12.7); Neutrophils % 87.1 % (38.7-73.9); Platelet Count 197 T/CUMM (130-400); Red Blood Count 2.55 MC/CUMM (3.8-5.5); Red Cell Distribution Width 17.6 % (9.3-17.3); White Blood Count 8.7 T/CUMM (4-12)
[2021-12-17 13:34] LABS: RBC,Urine 163 /HPF (0-4)
[2021-12-17 13:35] LABS: Bilirubin,Urine Negative (Negative); Blood, Urine Large mg/dL (Negative); Glucose,Urine (UA) Negative (Negative); Ketones,Urine Negative (Negative); Nitrite,Urine Positive (Negative); Protein,Urine >=300 mg/dL (Negative); Urine Appearance Cloudy (Clear); Urine Color Yellow (Yellow); Urine pH 7.5 (4.5-8.0)
[2021-12-17 13:43] LABS: PT Patient Result 11.4 SECS (10.5-12.0); Partial Thromboplastin Time 25.7 SECS (23.8-32.1)
[2021-12-17 13:56] LABS: Anisocytosis 1+
[2021-12-17 13:57] LABS: Macrocytosis 1+; Polychromasia 1+
[2021-12-17 13:58] LABS: Platelet Estimate Adequate; Stomatocytes Slight
[2021-12-17] MEDS ORDERED: cefTRIAXone 2,000 MG in SODIUM CHLORIDE 0.9% 100 ML IV ONE (14:00)
[2021-12-17 14:06] LABS: Albumin 2.9 G/DL (3.4-5.0); Bilirubin,Total 0.5 MG/DL (0.20-1.00); Total Protein 5.8 G/DL (6.4-8.2)
[2021-12-17 14:06] LABS: Barbiturates Screen,Urine Negative (Negative); Benzodiazepines Screen,Urine Negative (Negative); Cannabinoid Screen,Urine Positive (Negative); Opiate Screen,Urine Negative (Negative); Phencyclidine Screen,Urine Negative (Negative)
[2021-12-17] MEDS ORDERED: FUROSEMIDE 40 MG/4 ML VIAL IV STA (14:53)
[2021-12-17] MEDS ORDERED: GLUCAGON 1 MG VIAL IM PRN (15:22)
[2021-12-17] MEDS ORDERED: DOCUSATE SODIUM 100 MG CAPSULE PO PRN (15:22)
[2021-12-17] MEDS ORDERED: DEXTROSE 10% 250 ML BAG IV PRN (15:41)
[2021-12-17] MEDS: methylPREDNISolone SOD SUC 40 MG/1 ML VIAL IV SCH ×2 (16:37→23:56)
[2021-12-17 17:46] LABS: Hematocrit 28.2 VOL% (35.7-47.0); Hemoglobin 8.1 GM/DL (12.0-16.0)
[2021-12-17] MEDS ORDERED: LEVALBUTEROL 1.25 MG/3 ML NEB RESP TX ONE (18:56)
[2021-12-17] MEDS: LEVALBUTEROL 1.25 MG/3 ML NEB RESP TX SCH (19:12)
[2021-12-17] MEDS: PANTOPRAZOLE 40 MG VIAL IV SCH (21:47)
[2021-12-17 22:17] LABS: Hematocrit 26.6 VOL% (35.7-47.0); Hemoglobin 7.7 GM/DL (12.0-16.0)
[2021-12-18] MEDS: LEVALBUTEROL 1.25 MG/3 ML NEB RESP TX SCH ×4 (01:01→19:10)
[2021-12-18 05:21] LABS: Basophils % 0.2 % (0.0-0.8); Hematocrit 27.4 VOL% (35.7-47.0); Hemoglobin 7.9 GM/DL (12.0-16.0); Immature Granulocytes % 1.3 %; Immature Granulocytes Absolute 0.11 #; Lymphocytes # 0.3 10*3/uL (1.4-4.0); Mean Corpuscular HGB Conc 28.8 GM/DL (32-36); Mean Corpuscular Volume 107.9 FL (87-102); Mean Platelet Volume 10.6 FL (9.6-12.0); Monocytes # 0.1 10*3/uL (0.11-0.8); Monocytes % 0.8 % (1.7-12.7); Neutrophils % 94.7 % (38.7-73.9); Platelet Count 228 T/CUMM (130-400); Red Blood Count 2.54 MC/CUMM (3.8-5.5); Red Cell Distribution Width 17.5 % (9.3-17.3); White Blood Count 8.3 T/CUMM (4-12)
[2021-12-18 05:38] LABS: Calcium 9.8 MG/DL (8.5-10.1); Osmolality,Calculated 294.4 MOS/KG (273-304); Potassium 5.5 MMOL/L (3.5-5.1)
[2021-12-18 05:46] LABS: Lymphocytes 8 % (20-55); Total Cells Counted 100
[2021-12-18 05:47] LABS: Macrocytosis 1+; Platelet Estimate Normal; Poikilocytosis Slight
[2021-12-18 05:48] LABS: Tear Drop Cells Few
[2021-12-18] MEDS: ONDANSETRON 4 MG/2 ML VIAL IV PRN (06:20)
[2021-12-18] MEDS ORDERED: SODIUM POLYSTYRENE SULFATE 15 GM/60 ML BOTTLE PO ONE (09:00)
[2021-12-18] MEDS: PANTOPRAZOLE 40 MG VIAL IV SCH ×2 (09:08→21:09)
[2021-12-18] MEDS: methylPREDNISolone SOD SUC 40 MG/1 ML VIAL IV SCH ×3 (09:09→23:54)
[2021-12-18] MEDS: ASCORBIC ACID 500 MG TABLET PO SCH ×2 (09:12→21:07)
[2021-12-18] MEDS: ASPIRIN EC 81 MG TABLET PO SCH (09:12)
[2021-12-18] MEDS: FUROSEMIDE 40 MG/4 ML VIAL IV SCH (09:12)
[2021-12-18] MEDS: NEBIVOLOL 5 MG TABLET PO SCH (09:13)
[2021-12-18] MEDS ORDERED: SODIUM CHLORIDE 0.9% 1,000 ML IV PRN (09:25)
[2021-12-18] MEDS: SILDENAFIL 20 MG TABLET PO SCH ×3 (09:26→22:27)
[2021-12-18] MEDS: cefTRIAXone 1,000 MG in SODIUM CHLORIDE 0.9% 100 ML IV SCH (11:15)
[2021-12-18] MEDS: FLUCONAZOLE 100 MG TABLET PO SCH (11:16)
[2021-12-18] MEDS: MONTELUKAST 10 MG TABLET PO SCH (11:16)
[2021-12-18] MEDS ORDERED: FUROSEMIDE 40 MG/4 ML VIAL IV PRN (17:00)
[2021-12-18] MEDS: CLORAZEPATE 3.75 MG TABLET PO PRN ×2 (18:26→23:56)
[2021-12-18] MEDS: ROSUVASTATIN 10 MG TABLET PO SCH (21:07)
[2021-12-19] MEDS: LEVALBUTEROL 1.25 MG/3 ML NEB RESP TX SCH ×4 (00:10→19:20)
[2021-12-19 05:28] LABS: Basophils % 0.1 % (0.0-0.8); Hematocrit 29.4 VOL% (35.7-47.0); Hemoglobin 8.5 GM/DL (12.0-16.0); Immature Granulocytes % 0.8 %; Immature Granulocytes Absolute 0.07 #; Lymphocytes # 0.2 10*3/uL (1.4-4.0); Lymphocytes % 2.6 % (21.3-54.2); Mean Corpuscular HGB Conc 28.9 GM/DL (32-36); Mean Platelet Volume 11.2 FL (9.6-12.0); Monocytes # 0.2 10*3/uL (0.11-0.8); Neutrophils % 94.5 % (38.7-73.9); Platelet Count 181 T/CUMM (130-400); Red Cell Distribution Width 18.8 % (9.3-17.3); White Blood Count 8.3 T/CUMM (4-12)
[2021-12-19 05:44] LABS: % Iron Saturation 9.1 % (18-50)
[2021-12-19 05:47] LABS: Folate 11.9 NG/ML (5.38-24.0)
[2021-12-19 05:49] LABS: Calcium 9.1 MG/DL (8.5-10.1); Potassium 4.3 MMOL/L (3.5-5.1)
[2021-12-19 05:50] LABS: PT Patient Result 11.4 SECS (10.5-12.0)
[2021-12-19] MEDS: LEVOTHYROXINE 125 MCG TABLET PO SCH (05:51)
[2021-12-19 06:05] LABS: Lymphocytes 5 % (20-55); Metamyelocytes 1 %; Total Cells Counted 100
[2021-12-19 06:06] LABS: Macrocytosis 1+; Tear Drop Cells Slight
[2021-12-19 06:07] LABS: Platelet Estimate Adequate
[2021-12-19 06:19] LABS: Partial Thromboplastin Time < 20.0 SECS (23.8-32.1)
[2021-12-19] MEDS ORDERED: BENZONATATE 100 MG CAPSULE PO ONE (07:30)
[2021-12-19] MEDS ORDERED: MEPERIDINE 50 MG/1 ML VIAL IM ONE (07:30)
[2021-12-19] MEDS ORDERED: diphenhydrAMINE 50 MG/1 ML VIAL IM ONE (07:30)
[2021-12-19] MEDS ORDERED: LIDOCAINE 2% VISCOUS 100 ML BOTTLE SWISH/SPIT ONE (08:00)
[2021-12-19] MEDS ORDERED: LIDOCAINE 1% 20 ML VIAL MISC INJ ONE (08:00)
[2021-12-19] MEDS ORDERED: LIDOCAINE 2% 20 ML VIAL RESP TX ONE (08:00)
[2021-12-19] MEDS ORDERED: MIDAZOLAM 2 MG/2 ML VIAL ONE (08:17)
[2021-12-19] MEDS: ONDANSETRON 4 MG/2 ML VIAL IV PRN (10:46)
[2021-12-19] MEDS: cefTRIAXone 1,000 MG in SODIUM CHLORIDE 0.9% 100 ML IV SCH (10:47)
[2021-12-19] MEDS: PANTOPRAZOLE 40 MG VIAL IV SCH ×2 (10:47→20:45)
[2021-12-19] MEDS: FUROSEMIDE 40 MG/4 ML VIAL IV SCH (10:47)
[2021-12-19] MEDS: SILDENAFIL 20 MG TABLET PO SCH ×3 (12:05→20:43)
[2021-12-19] MEDS: CLORAZEPATE 3.75 MG TABLET PO PRN ×3 (12:48→23:57)
[2021-12-19] MEDS: ASCORBIC ACID 500 MG TABLET PO SCH ×2 (12:53→20:43)
[2021-12-19] MEDS: MONTELUKAST 10 MG TABLET PO SCH (12:53)
[2021-12-19] MEDS: ASPIRIN EC 81 MG TABLET PO SCH (12:53)
[2021-12-19] MEDS: NEBIVOLOL 5 MG TABLET PO SCH (12:54)
[2021-12-19] MEDS: FLUCONAZOLE 100 MG TABLET PO SCH (12:54)
[2021-12-19] MEDS: methylPREDNISolone SOD SUC 40 MG/1 ML VIAL IV SCH ×3 (12:57→23:55)
[2021-12-19] MEDS: ROSUVASTATIN 10 MG TABLET PO SCH (20:43)
[2021-12-20 05:36] LABS: Hematocrit 28.2 VOL% (35.7-47.0); Hemoglobin 8.1 GM/DL (12.0-16.0); Immature Granulocytes % 0.9 %; Immature Granulocytes Absolute 0.06 #; Lymphocytes # 0.2 10*3/uL (1.4-4.0); Lymphocytes % 2.3 % (21.3-54.2); Mean Corpuscular HGB Conc 28.7 GM/DL (32-36); Mean Corpuscular Volume 104.4 FL (87-102); Mean Platelet Volume 10.1 FL (9.6-12.0); Monocytes # 0.1 10*3/uL (0.11-0.8); Monocytes % 1.7 % (1.7-12.7); Neutrophils % 95.1 % (38.7-73.9); Platelet Count 206 T/CUMM (130-400); Red Cell Distribution Width 17.4 % (9.3-17.3); White Blood Count 6.6 T/CUMM (4-12)
[2021-12-20 06:01] LABS: Calcium 9.2 MG/DL (8.5-10.1); Potassium 3.8 MMOL/L (3.5-5.1)
[2021-12-20 06:13] LABS: Band Neutrophils 1 % (0-10); Hypochromia Slight; Lymphocytes 3 % (20-55); Platelet Estimate Adequate; Total Cells Counted 100
[2021-12-20] MEDS: LEVOTHYROXINE 125 MCG TABLET PO SCH (06:25)
[2021-12-20] MEDS: LEVALBUTEROL 1.25 MG/3 ML NEB RESP TX SCH ×4 (07:20→19:00)
[2021-12-20] MEDS: ASCORBIC ACID 500 MG TABLET PO SCH ×2 (09:26→21:41)
[2021-12-20] MEDS: ASPIRIN EC 81 MG TABLET PO SCH (09:26)
[2021-12-20] MEDS: MONTELUKAST 10 MG TABLET PO SCH (09:27)
[2021-12-20] MEDS: FLUCONAZOLE 100 MG TABLET PO SCH (09:27)
[2021-12-20] MEDS: NEBIVOLOL 5 MG TABLET PO SCH (09:27)
[2021-12-20] MEDS: cefTRIAXone 1,000 MG in SODIUM CHLORIDE 0.9% 100 ML IV SCH (09:28)
[2021-12-20] MEDS: PANTOPRAZOLE 40 MG VIAL IV SCH ×2 (09:29→21:42)
[2021-12-20] MEDS: methylPREDNISolone SOD SUC 40 MG/1 ML VIAL IV SCH ×2 (09:29→18:12)
[2021-12-20] MEDS: FUROSEMIDE 40 MG/4 ML VIAL IV SCH (09:30)
[2021-12-20] MEDS: CLORAZEPATE 3.75 MG TABLET PO PRN ×2 (09:50→21:41)
[2021-12-20] MEDS: SILDENAFIL 20 MG TABLET PO SCH ×3 (10:59→21:42)
[2021-12-20] MEDS ORDERED: LEVOFLOXACIN INJ 500 MG/100 ML PREMIX IV ONE (14:00)
[2021-12-20] MEDS: GABAPENTIN 300 MG CAPSULE PO SCH ×2 (14:44→21:41)
[2021-12-20] MEDS: BENZONATATE 100 MG CAPSULE PO SCH ×2 (15:44→21:41)
[2021-12-20] MEDS: FERROUS SULFATE 325 MG TABLET PO SCH ×2 (15:45→21:41)
[2021-12-20] MEDS: guaiFENesin/DM ER 600-30 MG TABLET PO SCH (21:41)
[2021-12-20] MEDS: ROSUVASTATIN 10 MG TABLET PO SCH (21:42)
[2021-12-21] MEDS: methylPREDNISolone SOD SUC 40 MG/1 ML VIAL IV SCH ×3 (00:05→16:31)
[2021-12-21] MEDS: LEVALBUTEROL 1.25 MG/3 ML NEB RESP TX SCH ×4 (01:00→19:10)
[2021-12-21] MEDS: SILDENAFIL 20 MG TABLET PO SCH ×3 (05:53→22:03)
[2021-12-21] MEDS: LEVOTHYROXINE 125 MCG TABLET PO SCH (05:53)
[2021-12-21 06:26] LABS: Basophils % 0.2 % (0.0-0.8); Hematocrit 26.2 VOL% (35.7-47.0); Hemoglobin 7.6 GM/DL (12.0-16.0); Immature Granulocytes % 0.7 %; Immature Granulocytes Absolute 0.04 #; Lymphocytes # 0.1 10*3/uL (1.4-4.0); Lymphocytes % 1.5 % (21.3-54.2); Mean Corpuscular Volume 104.4 FL (87-102); Mean Platelet Volume 10.4 FL (9.6-12.0); Monocytes # 0.2 10*3/uL (0.11-0.8); Monocytes % 3.1 % (1.7-12.7); Neutrophils % 94.5 % (38.7-73.9); Platelet Count 196 T/CUMM (130-400); Red Blood Count 2.51 MC/CUMM (3.8-5.5); Red Cell Distribution Width 16.8 % (9.3-17.3); White Blood Count 5.8 T/CUMM (4-12)
[2021-12-21 06:38] LABS: Calcium 9.1 MG/DL (8.5-10.1); Osmolality,Calculated 308.3 MOS/KG (273-304); Potassium 3.5 MMOL/L (3.5-5.1)
[2021-12-21 06:48] LABS: Hypochromia Slight; Lymphocytes 3 % (20-55); Platelet Estimate Adequate; Total Cells Counted 100
[2021-12-21] MEDS ORDERED: SODIUM CHLORIDE 0.9% 1,000 ML IV PRN (07:53)
[2021-12-21] MEDS ORDERED: FUROSEMIDE 20 MG/2 ML VIAL IV ONE (07:55)
[2021-12-21] MEDS: FUROSEMIDE 40 MG/4 ML VIAL IV SCH (08:36)
[2021-12-21] MEDS: PANTOPRAZOLE 40 MG VIAL IV SCH ×2 (08:37→22:04)
[2021-12-21] MEDS: ASPIRIN EC 81 MG TABLET PO SCH (08:37)
[2021-12-21] MEDS: ASCORBIC ACID 500 MG TABLET PO SCH ×2 (08:37→22:04)
[2021-12-21] MEDS: guaiFENesin/DM ER 600-30 MG TABLET PO SCH ×2 (08:38→22:04)
[2021-12-21] MEDS: BENZONATATE 100 MG CAPSULE PO SCH ×3 (08:38→22:03)
[2021-12-21] MEDS: NEBIVOLOL 5 MG TABLET PO SCH (08:38)
[2021-12-21] MEDS: MONTELUKAST 10 MG TABLET PO SCH (08:38)
[2021-12-21] MEDS: FLUCONAZOLE 100 MG TABLET PO SCH (08:39)
[2021-12-21] MEDS: GABAPENTIN 300 MG CAPSULE PO SCH ×2 (08:39→22:04)
[2021-12-21] MEDS: FERROUS SULFATE 325 MG TABLET PO SCH ×3 (08:39→22:03)
[2021-12-21] MEDS ORDERED: POLYETHYLENE GLYCOL POWDER 17 GM PACK PO PRN (10:09)
[2021-12-21] MEDS: CLORAZEPATE 3.75 MG TABLET PO PRN ×2 (11:28→22:03)
[2021-12-21] MEDS: LEVOFLOXACIN INJ 250 MG/50 ML PREMIX IV SCH (14:37)
[2021-12-21] MEDS: ROSUVASTATIN 10 MG TABLET PO SCH (22:04)
[2021-12-22] MEDS: LEVALBUTEROL 1.25 MG/3 ML NEB RESP TX SCH ×4 (00:46→19:15)
[2021-12-22] MEDS: methylPREDNISolone SOD SUC 40 MG/1 ML VIAL IV SCH ×3 (00:54→15:00)
[2021-12-22 05:14] LABS: Basophils % 0.2 % (0.0-0.8); Hematocrit 29.2 VOL% (35.7-47.0); Hemoglobin 8.7 GM/DL (12.0-16.0); Immature Granulocytes % 0.6 %; Immature Granulocytes Absolute 0.04 #; Lymphocytes # 0.1 10*3/uL (1.4-4.0); Lymphocytes % 1.5 % (21.3-54.2); Mean Corpuscular HGB Conc 29.8 GM/DL (32-36); Mean Corpuscular Volume 100.7 FL (87-102); Mean Platelet Volume 10.5 FL (9.6-12.0); Monocytes # 0.2 10*3/uL (0.11-0.8); Monocytes % 2.9 % (1.7-12.7); Neutrophils % 94.8 % (38.7-73.9); Platelet Count 180 T/CUMM (130-400); Red Cell Distribution Width 16.2 % (9.3-17.3); White Blood Count 6.6 T/CUMM (4-12)
[2021-12-22 05:33] LABS: Calcium 9.3 MG/DL (8.5-10.1); Osmolality,Calculated 310.5 MOS/KG (273-304); Potassium 3.6 MMOL/L (3.5-5.1)
[2021-12-22 05:35] LABS: Hypochromia Slight; Platelet Estimate Adequate; Total Cells Counted 100
[2021-12-22] MEDS: SILDENAFIL 20 MG TABLET PO SCH ×3 (05:48→21:47)
[2021-12-22] MEDS: LEVOTHYROXINE 125 MCG TABLET PO SCH (05:48)
[2021-12-22] MEDS: guaiFENesin/DM ER 600-30 MG TABLET PO SCH ×2 (09:27→21:47)
[2021-12-22] MEDS: ASPIRIN EC 81 MG TABLET PO SCH (09:28)
[2021-12-22] MEDS: FLUCONAZOLE 100 MG TABLET PO SCH (09:28)
[2021-12-22] MEDS: FERROUS SULFATE 325 MG TABLET PO SCH ×3 (09:28→21:47)
[2021-12-22] MEDS: BENZONATATE 100 MG CAPSULE PO SCH ×3 (09:28→21:46)
[2021-12-22] MEDS: NEBIVOLOL 5 MG TABLET PO SCH (09:28)
[2021-12-22] MEDS: ASCORBIC ACID 500 MG TABLET PO SCH ×2 (09:28→21:46)
[2021-12-22] MEDS: MONTELUKAST 10 MG TABLET PO SCH (09:28)
[2021-12-22] MEDS: GABAPENTIN 300 MG CAPSULE PO SCH ×2 (09:28→21:46)
[2021-12-22] MEDS: FUROSEMIDE 40 MG/4 ML VIAL IV SCH (09:29)
[2021-12-22] MEDS: PANTOPRAZOLE 40 MG VIAL IV SCH ×2 (09:29→21:47)
[2021-12-22] MEDS: LEVOFLOXACIN INJ 250 MG/50 ML PREMIX IV SCH (14:53)
[2021-12-22] MEDS: CLORAZEPATE 3.75 MG TABLET PO PRN (15:08)
[2021-12-22] MEDS: ROSUVASTATIN 10 MG TABLET PO SCH (21:46)
[2021-12-23] MEDS: methylPREDNISolone SOD SUC 40 MG/1 ML VIAL IV SCH ×3 (00:44→21:16)
[2021-12-23] MEDS: LEVALBUTEROL 1.25 MG/3 ML NEB RESP TX SCH ×4 (00:45→19:21)
[2021-12-23 05:15] LABS: Basophils % 0.2 % (0.0-0.8); Hematocrit 29.2 VOL% (35.7-47.0); Hemoglobin 8.8 GM/DL (12.0-16.0); Immature Granulocytes % 1.2 %; Immature Granulocytes Absolute 0.08 #; Lymphocytes # 0.1 10*3/uL (1.4-4.0); Lymphocytes % 1.1 % (21.3-54.2); Mean Corpuscular HGB Conc 30.1 GM/DL (32-36); Mean Corpuscular Volume 100.3 FL (87-102); Mean Platelet Volume 10.7 FL (9.6-12.0); Monocytes # 0.3 10*3/uL (0.11-0.8); Monocytes % 3.8 % (1.7-12.7); Neutrophils % 93.7 % (38.7-73.9); Platelet Count 194 T/CUMM (130-400); Red Blood Count 2.91 MC/CUMM (3.8-5.5); Red Cell Distribution Width 15.9 % (9.3-17.3); White Blood Count 6.7 T/CUMM (4-12)
[2021-12-23 05:38] LABS: Band Neutrophils 1 % (0-10); Lymphocytes 3 % (20-55); Total Cells Counted 100
[2021-12-23 05:39] LABS: Calcium 9.4 MG/DL (8.5-10.1); Macrocytosis Slight; Osmolality,Calculated 308.8 MOS/KG (273-304); Ovalocytes Slight; Platelet Estimate Adequate; Potassium 3.6 MMOL/L (3.5-5.1); Tear Drop Cells Slight
[2021-12-23] MEDS: LEVOTHYROXINE 125 MCG TABLET PO SCH (05:54)
[2021-12-23] MEDS: SILDENAFIL 20 MG TABLET PO SCH ×3 (05:54→21:17)
[2021-12-23] MEDS: LEVOTHYROXINE 25 MCG TABLET PO SCH (05:54)
[2021-12-23] MEDS ORDERED: GLUCAGON 1 MG VIAL IM PRN (09:05)
[2021-12-23] MEDS ORDERED: DEXTROSE 50% 25 GM/50 ML VIAL IV PRN ×2 (09:05→09:06)
[2021-12-23] MEDS ORDERED: INSULIN REGULAR 100 UNIT/ML IV ONE (09:08)
[2021-12-23] MEDS: FUROSEMIDE 40 MG/4 ML VIAL IV SCH (09:30)
[2021-12-23] MEDS: PANTOPRAZOLE 40 MG VIAL IV SCH ×2 (09:30→21:16)
[2021-12-23] MEDS ORDERED: POTASSIUM CHLORIDE RIDER 10 MEQ/100 ML PREMIX IV PRN (09:33)
[2021-12-23] MEDS ORDERED: POTASSIUM CHLORIDE 20 MEQ TABLET PO PRN (09:33)
[2021-12-23] MEDS: INSULIN LISPRO 100 UNIT/ML SUBCUT SCH ×4 (10:30→21:17)
[2021-12-23] MEDS ORDERED: INSULIN REGULAR 100 UNIT/ML SUBCUT SCH (11:30)
[2021-12-23] MEDS: ASPIRIN EC 81 MG TABLET PO SCH (12:47)
[2021-12-23] MEDS: ASCORBIC ACID 500 MG TABLET PO SCH ×2 (12:47→21:17)
[2021-12-23] MEDS: FERROUS SULFATE 325 MG TABLET PO SCH ×3 (12:48→21:17)
[2021-12-23] MEDS: LEVOFLOXACIN 250 MG TABLET PO SCH (12:48)
[2021-12-23] MEDS: NEBIVOLOL 5 MG TABLET PO SCH (12:48)
[2021-12-23] MEDS: FLUCONAZOLE 100 MG TABLET PO SCH (12:48)
[2021-12-23] MEDS: guaiFENesin/DM ER 600-30 MG TABLET PO SCH ×2 (12:48→21:18)
[2021-12-23] MEDS: BENZONATATE 100 MG CAPSULE PO SCH ×3 (12:49→21:17)
[2021-12-23] MEDS: GABAPENTIN 300 MG CAPSULE PO SCH ×2 (12:49→21:17)
[2021-12-23] MEDS: MONTELUKAST 10 MG TABLET PO SCH (12:50)
[2021-12-23] MEDS: FERRIC GLUCONATE COMPLEX 125 MG in SODIUM CHLORIDE 0.9% 100 ML IV SCH (12:51)
[2021-12-23 20:04] LABS: Amorphous Crystals,Urine Occasional /HPF (Few); Bacteria,Urine Occasional /HPF (Few); Hyaline Casts,Urine 1 /LPF (0-3); RBC,Urine 28 /HPF (0-4); Squamous Epithelial Cell,Urine Occasional /HPF (0-10)
[2021-12-23 20:05] LABS: Bilirubin,Urine Negative (Negative); Blood, Urine Moderate mg/dL (Negative); Glucose,Urine (UA) 100 mg/dL (Negative); Ketones,Urine Negative (Negative); Nitrite,Urine Negative (Negative); Protein,Urine Negative (Negative); Urine Appearance Clear (Clear); Urine Color Yellow (Yellow); Urine Urobilinogen 0.2 eU/dL (<2.0)
[2021-12-23] MEDS: ROSUVASTATIN 10 MG TABLET PO SCH (21:17)
[2021-12-24] MEDS: LEVALBUTEROL 1.25 MG/3 ML NEB RESP TX SCH ×4 (00:06→19:52)
[2021-12-24 05:13] LABS: Basophils % 0.1 % (0.0-0.8); Hematocrit 29.6 VOL% (35.7-47.0); Hemoglobin 8.9 GM/DL (12.0-16.0); Immature Granulocytes % 1.1 %; Immature Granulocytes Absolute 0.11 #; Lymphocytes # 0.1 10*3/uL (1.4-4.0); Mean Corpuscular HGB Conc 30.1 GM/DL (32-36); Mean Corpuscular Volume 101.4 FL (87-102); Mean Platelet Volume 10.6 FL (9.6-12.0); Monocytes # 0.3 10*3/uL (0.11-0.8); Monocytes % 3.1 % (1.7-12.7); Neutrophils % 94.7 % (38.7-73.9); Platelet Count 203 T/CUMM (130-400); Red Blood Count 2.92 MC/CUMM (3.8-5.5); Red Cell Distribution Width 15.7 % (9.3-17.3); White Blood Count 9.9 T/CUMM (4-12)
[2021-12-24 05:25] LABS: Calcium 9.1 MG/DL (8.5-10.1); Osmolality,Calculated 301.3 MOS/KG (273-304); Potassium 3.9 MMOL/L (3.5-5.1)
[2021-12-24 05:42] LABS: Hypochromia Slight; Lymphocytes 1 % (20-55); Macrocytosis Slight; Platelet Estimate Adequate; Total Cells Counted 100
[2021-12-24] MEDS: LEVOTHYROXINE 125 MCG TABLET PO SCH (05:53)
[2021-12-24] MEDS: SILDENAFIL 20 MG TABLET PO SCH ×2 (06:02→14:58)
[2021-12-24] MEDS ORDERED: FUROSEMIDE 20 MG TABLET PO SCH (09:00)
[2021-12-24] MEDS: INSULIN LISPRO 100 UNIT/ML SUBCUT SCH ×4 (10:45→21:06)
[2021-12-24] MEDS: FLUCONAZOLE 100 MG TABLET PO SCH (10:46)
[2021-12-24] MEDS: ASPIRIN EC 81 MG TABLET PO SCH (10:46)
[2021-12-24] MEDS: NEBIVOLOL 5 MG TABLET PO SCH (10:46)
[2021-12-24] MEDS: FERROUS SULFATE 325 MG TABLET PO SCH ×3 (10:46→21:05)
[2021-12-24] MEDS: LEVOFLOXACIN 250 MG TABLET PO SCH (10:47)
[2021-12-24] MEDS: guaiFENesin/DM ER 600-30 MG TABLET PO SCH (10:47)
[2021-12-24] MEDS: GABAPENTIN 300 MG CAPSULE PO SCH ×2 (10:47→21:05)
[2021-12-24] MEDS: BENZONATATE 100 MG CAPSULE PO SCH ×3 (10:48→21:06)
[2021-12-24] MEDS: MONTELUKAST 10 MG TABLET PO SCH (10:48)
[2021-12-24] MEDS: ASCORBIC ACID 500 MG TABLET PO SCH ×2 (10:48→21:05)
[2021-12-24] MEDS: methylPREDNISolone SOD SUC 40 MG/1 ML VIAL IV SCH ×2 (11:52→18:00)
[2021-12-24] MEDS: FERRIC GLUCONATE COMPLEX 125 MG in SODIUM CHLORIDE 0.9% 100 ML IV SCH (11:52)
[2021-12-24] MEDS: PANTOPRAZOLE 40 MG VIAL IV SCH ×2 (11:53→21:04)
[2021-12-24] MEDS ORDERED: SODIUM CHLORIDE 0.9% 500 ML IV SCH (13:00)
[2021-12-24 14:30] LABS: Arterial Base Excess iSTAT 19 MMOL/L (-2.5-2.5); Arterial Bicarbonate iSTAT 46.1 MMOL/L (20-26); Arterial O2 Saturation iSTAT 74 % (95-100); Arterial PCO2 iSTAT 71 MM HG (35-48); Arterial PO2 iSTAT 41 MM HG (80-95); Arterial Total CO2 iSTAT 48 MMO/L (23-27); Arterial pH iSTAT 7.422 (7.35-7.45)
[2021-12-24 14:53] LABS: Arterial Base Excess iSTAT 19 MMOL/L (-2.5-2.5); Arterial Bicarbonate iSTAT 45.6 MMOL/L (20-26); Arterial O2 Saturation iSTAT 91 % (95-100); Arterial PCO2 iSTAT 69 MM HG (35-48); Arterial PO2 iSTAT 64 MM HG (80-95); Arterial Total CO2 iSTAT 48 MMO/L (23-27); Arterial pH iSTAT 7.431 (7.35-7.45)
[2021-12-24] MEDS ORDERED: INSULIN GLARGINE 100 UNIT/ML SUBCUT SCH (15:00)
[2021-12-24] MEDS ORDERED: FUROSEMIDE 40 MG/4 ML VIAL IV ONE (15:00)
[2021-12-24 15:27] LABS: Basophils % 0.1 % (0.0-0.8); Hematocrit 30.4 VOL% (35.7-47.0); Hemoglobin 9.2 GM/DL (12.0-16.0); Lymphocytes # 0.1 10*3/uL (1.4-4.0); Lymphocytes % 1.2 % (21.3-54.2); Mean Corpuscular HGB Conc 30.3 GM/DL (32-36); Mean Platelet Volume 11.1 FL (9.6-12.0); Monocytes # 0.4 10*3/uL (0.11-0.8); Monocytes % 4.1 % (1.7-12.7); Neutrophils % 93.9 % (38.7-73.9); Platelet Count 171 T/CUMM (130-400); Red Blood Count 3.04 MC/CUMM (3.8-5.5); Red Cell Distribution Width 16.1 % (9.3-17.3); White Blood Count 9.5 T/CUMM (4-12)
[2021-12-24 15:34] LABS: Bilirubin,Total 0.6 MG/DL (0.20-1.00); Calcium 9.4 MG/DL (8.5-10.1); Osmolality,Calculated 299.4 MOS/KG (273-304); Potassium 3.9 MMOL/L (3.5-5.1); Total Protein 5.8 G/DL (6.4-8.2)
[2021-12-24 15:48] LABS: Albumin 3.1 G/DL (3.4-5.0); Total Protein 5.8 G/DL (6.4-8.2)
[2021-12-24] MEDS: PIPERACILLIN/TAZOBACTAM 3,375 MG in SODIUM CHLORIDE 0.9% 100 ML IV SCH (15:50)
[2021-12-24 16:00] LABS: INR 1.1; PT Patient Result 12.5 SECS (10.5-12.0)
[2021-12-24 16:23] LABS: Glucose,Pleural Fluid 228 MG/DL; LDH,Body Fluid 165 U/L; Total Protein,Body Fluid < 2.0 G/DL
[2021-12-24 17:06] LABS: Lymphocytes,Pleural Fluid 94 %; Monocytes,Pleural Fluid 4 %; Neutrophils,Pleural Fluid 2 %; RBC,Pleural Fluid 1769 T/CUMM
[2021-12-24] MEDS: BUDESONIDE 0.5 MG/2 ML NEB RESP TX SCH (19:30)
[2021-12-24] MEDS: ALBUTEROL/IPRATROPIUM 3 ML NEB RESP TX SCH (19:30)
[2021-12-24] MEDS: DORNASE ALFA 2.5 MG/2.5 ML VIAL RESP TX SCH (20:04)
[2021-12-24] MEDS ORDERED: LEVALBUTEROL 1.25 MG/3 ML NEB RESP TX PRN (22:07)
[2021-12-25] MEDS: ALBUTEROL/IPRATROPIUM 3 ML NEB RESP TX SCH ×4 (00:11→19:07)
[2021-12-25] MEDS: PIPERACILLIN/TAZOBACTAM 3,375 MG in SODIUM CHLORIDE 0.9% 100 ML IV SCH ×3 (02:14→18:15)
[2021-12-25] MEDS: guaiFENesin/DM ER 600-30 MG TABLET PO SCH ×3 (02:16→20:06)
[2021-12-25] MEDS: methylPREDNISolone SOD SUC 40 MG/1 ML VIAL IV SCH ×5 (02:16→23:13)
[2021-12-25] MEDS: ROSUVASTATIN 10 MG TABLET PO SCH ×2 (02:21→20:07)
[2021-12-25] MEDS: SILDENAFIL 20 MG TABLET PO SCH ×4 (02:22→21:10)
[2021-12-25 03:39] LABS: Basophils % 0.1 % (0.0-0.8); Hematocrit 31.1 VOL% (35.7-47.0); Hemoglobin 9.2 GM/DL (12.0-16.0); Immature Granulocytes % 1.1 %; Lymphocytes # 0.1 10*3/uL (1.4-4.0); Lymphocytes % 1.5 % (21.3-54.2); Mean Corpuscular HGB Conc 29.6 GM/DL (32-36); Mean Corpuscular Volume 101.3 FL (87-102); Mean Platelet Volume 10.4 FL (9.6-12.0); Monocytes # 0.2 10*3/uL (0.11-0.8); Monocytes % 2.1 % (1.7-12.7); Neutrophils % 95.2 % (38.7-73.9); Platelet Count 200 T/CUMM (130-400); Red Blood Count 3.07 MC/CUMM (3.8-5.5); Red Cell Distribution Width 15.9 % (9.3-17.3); White Blood Count 9.3 T/CUMM (4-12)
[2021-12-25 04:01] LABS: Band Neutrophils 1 % (0-10); Lymphocytes 3 % (20-55); Total Cells Counted 100
[2021-12-25 04:02] LABS: Hypochromia Slight; Macrocytosis Slight; Platelet Estimate Normal; Tear Drop Cells Slight
[2021-12-25 04:12] LABS: Blood Urea Nitrogen 59 MG/DL (7-18); Calcium 8.9 MG/DL (8.5-10.1); Carbon Dioxide 48 MMOL/L (21-32); Chloride 95 MMOL/L (98-107); Glucose 178 MG/DL (74-106); Osmolality,Calculated 299.4 MOS/KG (273-304); Sodium 140 MMOL/L (136-145)
[2021-12-25 04:52] LABS: INR 1.2; PT Patient Result 12.8 SECS (10.5-12.0); Partial Thromboplastin Time 25.7 SECS (23.8-32.1)
[2021-12-25] MEDS: LEVOTHYROXINE 25 MCG TABLET PO SCH (07:17)
[2021-12-25] MEDS: LEVOTHYROXINE 125 MCG TABLET PO SCH (07:18)
[2021-12-25] MEDS: BUDESONIDE 0.5 MG/2 ML NEB RESP TX SCH ×2 (07:52→19:07)
[2021-12-25] MEDS: INSULIN GLARGINE 100 UNIT/ML SUBCUT SCH (07:55)
[2021-12-25] MEDS: INSULIN LISPRO 100 UNIT/ML SUBCUT SCH ×4 (07:55→20:21)
[2021-12-25] MEDS ORDERED: LIDOCAINE 2% 20 ML VIAL RESP TX ONE (08:00)
[2021-12-25] MEDS ORDERED: LIDOCAINE 1% 20 ML VIAL MISC INJ ONE (08:00)
[2021-12-25] MEDS ORDERED: LIDOCAINE 2% VISCOUS 100 ML BOTTLE SWISH/SPIT ONE (08:00)
[2021-12-25] MEDS: DORNASE ALFA 2.5 MG/2.5 ML VIAL RESP TX SCH ×2 (08:02→19:23)
[2021-12-25] MEDS: ASCORBIC ACID 500 MG TABLET PO SCH ×2 (09:00→20:07)
[2021-12-25] MEDS: FERROUS SULFATE 325 MG TABLET PO SCH ×3 (09:00→20:07)
[2021-12-25] MEDS ORDERED: INSULIN GLARGINE 100 UNIT/ML SUBCUT SCH (09:00)
[2021-12-25] MEDS ORDERED: DAPAGLIFLOZIN 10 MG TABLET PO SCH (09:00)
[2021-12-25] MEDS: BENZONATATE 100 MG CAPSULE PO SCH ×3 (09:00→20:06)
[2021-12-25 12:22] LABS: Arterial Base Excess iSTAT 22 MMOL/L (-2.5-2.5); Arterial Bicarbonate iSTAT 51.8 MMOL/L (20-26); Arterial O2 Saturation iSTAT 99 % (95-100); Arterial PCO2 iSTAT 99 MM HG (35-48); Arterial PO2 iSTAT 177 MM HG (80-95); Arterial Total CO2 iSTAT > 50 MMO/L (23-27); Arterial pH iSTAT 7.329 (7.35-7.45)
[2021-12-25] MEDS: FERRIC GLUCONATE COMPLEX 125 MG in SODIUM CHLORIDE 0.9% 100 ML IV SCH (12:30)
[2021-12-25] MEDS: PANTOPRAZOLE 40 MG VIAL IV SCH ×2 (12:30→20:06)
[2021-12-25] MEDS: MONTELUKAST 10 MG TABLET PO SCH (12:44)
[2021-12-25] MEDS: NEBIVOLOL 5 MG TABLET PO SCH (12:45)
[2021-12-25] MEDS: ASPIRIN EC 81 MG TABLET PO SCH (12:45)
[2021-12-25] MEDS: GABAPENTIN 300 MG CAPSULE PO SCH ×2 (12:45→20:07)
[2021-12-25] MEDS: FLUCONAZOLE 100 MG TABLET PO SCH (12:45)
[2021-12-25 16:14] LABS: Arterial Base Excess iSTAT 20 MMOL/L (-2.5-2.5); Arterial Bicarbonate iSTAT 48.5 MMOL/L (20-26); Arterial O2 Saturation iSTAT 94 % (95-100); Arterial PCO2 iSTAT 80 MM HG (35-48); Arterial PO2 iSTAT 75 MM HG (80-95); Arterial Total CO2 iSTAT > 50 MMO/L (23-27); Arterial pH iSTAT 7.389 (7.35-7.45)
[2021-12-25 16:16] LABS: M. Tuberculosis PCR Result Negative (Negative); M. Tuberculosis PCR Source BRONCH WASH
[2021-12-25] MEDS: LACTATED RINGERS 1,000 ML IV SCH (16:35)
[2021-12-25] MEDS: CLORAZEPATE 3.75 MG TABLET PO PRN (18:35)
[2021-12-26] MEDS: ALBUTEROL/IPRATROPIUM 3 ML NEB RESP TX SCH ×4 (00:13→18:57)
[2021-12-26] MEDS: SILDENAFIL 20 MG TABLET PO SCH ×3 (05:17→23:06)
[2021-12-26 05:20] LABS: Basophils % 0.1 % (0.0-0.8); Hematocrit 32.5 VOL% (35.7-47.0); Hemoglobin 9.8 GM/DL (12.0-16.0); Immature Granulocytes % 0.8 %; Immature Granulocytes Absolute 0.08 #; Lymphocytes # 0.1 10*3/uL (1.4-4.0); Lymphocytes % 0.8 % (21.3-54.2); Mean Corpuscular HGB Conc 30.2 GM/DL (32-36); Mean Corpuscular Volume 100.6 FL (87-102); Mean Platelet Volume 10.6 FL (9.6-12.0); Monocytes # 0.2 10*3/uL (0.11-0.8); Monocytes % 1.9 % (1.7-12.7); Neutrophils % 96.4 % (38.7-73.9); Platelet Count 201 T/CUMM (130-400); Red Blood Count 3.23 MC/CUMM (3.8-5.5); Red Cell Distribution Width 15.6 % (9.3-17.3); White Blood Count 9.6 T/CUMM (4-12)
[2021-12-26 05:21] LABS: Blood Urea Nitrogen 62 MG/DL (7-18); Calcium 8.7 MG/DL (8.5-10.1); Carbon Dioxide 49 MMOL/L (21-32); Chloride 98 MMOL/L (98-107); Glucose 138 MG/DL (74-106); Osmolality,Calculated 305.8 MOS/KG (273-304); Potassium 3.7 MMOL/L (3.5-5.1); Sodium 144 MMOL/L (136-145)
[2021-12-26] MEDS: methylPREDNISolone SOD SUC 40 MG/1 ML VIAL IV SCH ×4 (05:23→23:07)
[2021-12-26] MEDS: LEVOTHYROXINE 125 MCG TABLET PO SCH (05:32)
[2021-12-26 05:35] LABS: Lymphocytes 3 % (20-55); Platelet Estimate Adequate; Total Cells Counted 100
[2021-12-26] MEDS: BUDESONIDE 0.5 MG/2 ML NEB RESP TX SCH ×2 (07:30→18:58)
[2021-12-26] MEDS: DORNASE ALFA 2.5 MG/2.5 ML VIAL RESP TX SCH ×2 (07:40→18:58)
[2021-12-26] MEDS: MONTELUKAST 10 MG TABLET PO SCH (09:41)
[2021-12-26] MEDS: ASCORBIC ACID 500 MG TABLET PO SCH ×2 (09:41→20:44)
[2021-12-26] MEDS: guaiFENesin/DM ER 600-30 MG TABLET PO SCH ×2 (09:42→20:45)
[2021-12-26] MEDS: FERROUS SULFATE 325 MG TABLET PO SCH ×3 (09:42→20:45)
[2021-12-26] MEDS: NEBIVOLOL 10 MG TABLET PO SCH (09:42)
[2021-12-26] MEDS: INSULIN LISPRO 100 UNIT/ML SUBCUT SCH ×4 (09:42→20:45)
[2021-12-26] MEDS: GABAPENTIN 300 MG CAPSULE PO SCH ×2 (09:42→20:45)
[2021-12-26] MEDS: FLUCONAZOLE 100 MG TABLET PO SCH (09:42)
[2021-12-26] MEDS: ASPIRIN EC 81 MG TABLET PO SCH (09:42)
[2021-12-26] MEDS: PANTOPRAZOLE 40 MG TABLET PO SCH ×2 (09:42→20:45)
[2021-12-26] MEDS: PIPERACILLIN/TAZOBACTAM 3,375 MG in SODIUM CHLORIDE 0.9% 100 ML IV SCH ×2 (09:43)
[2021-12-26] MEDS: INSULIN GLARGINE 100 UNIT/ML SUBCUT SCH (09:43)
[2021-12-26] MEDS: BENZONATATE 100 MG CAPSULE PO SCH ×3 (10:04→20:45)
[2021-12-26] MEDS: LACTATED RINGERS 1,000 ML IV SCH (10:05)
[2021-12-26] MEDS: FERRIC GLUCONATE COMPLEX 125 MG in SODIUM CHLORIDE 0.9% 100 ML IV SCH (10:05)
[2021-12-26 11:28] LABS: Arterial Base Excess iSTAT 19 MMOL/L (-2.5-2.5); Arterial Bicarbonate iSTAT 46.9 MMOL/L (20-26); Arterial O2 Saturation iSTAT 97 % (95-100); Arterial PCO2 iSTAT 77 MM HG (35-48); Arterial PO2 iSTAT 97 MM HG (80-95); Arterial Total CO2 iSTAT 49 MMO/L (23-27); Arterial pH iSTAT 7.393 (7.35-7.45)
[2021-12-26] MEDS ORDERED: INSULIN GLARGINE 100 UNIT/ML SUBCUT ONE (12:57)
[2021-12-26] MEDS: ROSUVASTATIN 10 MG TABLET PO SCH (20:45)
[2021-12-27] MEDS: ALBUTEROL/IPRATROPIUM 3 ML NEB RESP TX SCH ×4 (00:05→20:00)
[2021-12-27 05:01] LABS: Basophils % 0.1 % (0.0-0.8); Hematocrit 32.8 VOL% (35.7-47.0); Hemoglobin 10.2 GM/DL (12.0-16.0); Immature Granulocytes % 0.6 %; Immature Granulocytes Absolute 0.07 #; Lymphocytes # 0.1 10*3/uL (1.4-4.0); Lymphocytes % 0.7 % (21.3-54.2); Mean Corpuscular HGB Conc 31.1 GM/DL (32-36); Mean Corpuscular Volume 99.4 FL (87-102); Mean Platelet Volume 11.6 FL (9.6-12.0); Monocytes # 0.2 10*3/uL (0.11-0.8); Monocytes % 1.8 % (1.7-12.7); Neutrophils % 96.8 % (38.7-73.9); Platelet Count 171 T/CUMM (130-400); Red Cell Distribution Width 15.4 % (9.3-17.3); White Blood Count 12.5 T/CUMM (4-12)
[2021-12-27 05:20] LABS: Calcium 9.1 MG/DL (8.5-10.1); Potassium 3.8 MMOL/L (3.5-5.1)
[2021-12-27 05:22] LABS: Lymphocytes 1 % (20-55); Platelet Estimate Adequate; Total Cells Counted 100
[2021-12-27] MEDS: methylPREDNISolone SOD SUC 40 MG/1 ML VIAL IV SCH ×3 (06:11→21:27)
[2021-12-27] MEDS: LEVOTHYROXINE 125 MCG TABLET PO SCH (06:11)
[2021-12-27] MEDS: SILDENAFIL 20 MG TABLET PO SCH ×3 (06:11→21:27)
[2021-12-27] MEDS: DORNASE ALFA 2.5 MG/2.5 ML VIAL RESP TX SCH ×2 (07:22→19:55)
[2021-12-27] MEDS: BUDESONIDE 0.5 MG/2 ML NEB RESP TX SCH ×2 (07:22→20:00)
[2021-12-27] MEDS: INSULIN LISPRO 100 UNIT/ML SUBCUT SCH ×4 (07:57→21:36)
[2021-12-27] MEDS: FLUCONAZOLE 100 MG TABLET PO SCH (08:09)
[2021-12-27] MEDS: INSULIN GLARGINE 100 UNIT/ML SUBCUT SCH (08:09)
[2021-12-27] MEDS: NEBIVOLOL 10 MG TABLET PO SCH (08:09)
[2021-12-27] MEDS: ASPIRIN EC 81 MG TABLET PO SCH (08:10)
[2021-12-27] MEDS: ASCORBIC ACID 500 MG TABLET PO SCH ×2 (08:10→21:27)
[2021-12-27] MEDS: guaiFENesin/DM ER 600-30 MG TABLET PO SCH ×2 (08:10→21:27)
[2021-12-27] MEDS: BENZONATATE 100 MG CAPSULE PO SCH ×3 (08:10→21:27)
[2021-12-27] MEDS: FERROUS SULFATE 325 MG TABLET PO SCH ×3 (08:11→21:27)
[2021-12-27] MEDS: MONTELUKAST 10 MG TABLET PO SCH (08:11)
[2021-12-27] MEDS: GABAPENTIN 300 MG CAPSULE PO SCH ×2 (08:11→21:28)
[2021-12-27] MEDS: PANTOPRAZOLE 40 MG TABLET PO SCH ×2 (08:11→21:27)
[2021-12-27 10:16] LABS: Arterial Base Excess iSTAT 20 MMOL/L (-2.5-2.5); Arterial Bicarbonate iSTAT 48.7 MMOL/L (20-26); Arterial O2 Saturation iSTAT 98 % (95-100); Arterial PCO2 iSTAT 79 MM HG (35-48); Arterial PO2 iSTAT 107 MM HG (80-95); Arterial Total CO2 iSTAT > 50 MMO/L (23-27); Arterial pH iSTAT 7.401 (7.35-7.45)
[2021-12-27] MEDS: FERRIC GLUCONATE COMPLEX 125 MG in SODIUM CHLORIDE 0.9% 100 ML IV SCH (12:13)
[2021-12-27 17:36] LABS: M. Tuberculosis PCR Result Negative (Negative)
[2021-12-27 18:41] LABS: M. Tuberculosis PCR Result Negative (Negative)
[2021-12-27] MEDS: ROSUVASTATIN 10 MG TABLET PO SCH (21:28)
[2021-12-28] MEDS: ALBUTEROL/IPRATROPIUM 3 ML NEB RESP TX SCH ×4 (00:50→19:15)
[2021-12-28 05:15] LABS: Basophils % 0.1 % (0.0-0.8); Eosinophils % 0.1 % (0.00-10.9); Hematocrit 33.9 VOL% (35.7-47.0); Hemoglobin 10.2 GM/DL (12.0-16.0); Immature Granulocytes % 0.8 %; Immature Granulocytes Absolute 0.12 #; Lymphocytes # 0.1 10*3/uL (1.4-4.0); Lymphocytes % 0.6 % (21.3-54.2); Mean Corpuscular HGB Conc 30.1 GM/DL (32-36); Mean Platelet Volume 11.4 FL (9.6-12.0); Monocytes # 0.4 10*3/uL (0.11-0.8); Monocytes % 2.3 % (1.7-12.7); Neutrophils % 96.1 % (38.7-73.9); Platelet Count 181 T/CUMM (130-400); Red Blood Count 3.39 MC/CUMM (3.8-5.5); Red Cell Distribution Width 15.5 % (9.3-17.3); White Blood Count 15.9 T/CUMM (4-12)
[2021-12-28 05:27] LABS: Potassium 3.9 MMOL/L (3.5-5.1)
[2021-12-28 05:35] LABS: Osmolality,Calculated 299.3 MOS/KG (273-304)
[2021-12-28] MEDS: LEVOTHYROXINE 125 MCG TABLET PO SCH (05:55)
[2021-12-28] MEDS: methylPREDNISolone SOD SUC 40 MG/1 ML VIAL IV SCH ×3 (05:55→21:22)
[2021-12-28] MEDS: SILDENAFIL 20 MG TABLET PO SCH ×3 (05:55→21:22)
[2021-12-28 05:58] LABS: Anisocytosis 1+; Band Neutrophils 4 % (0-10); Platelet Estimate Normal; Total Cells Counted 100
[2021-12-28 05:59] LABS: Macrocytosis 1+
[2021-12-28] MEDS: BUDESONIDE 0.5 MG/2 ML NEB RESP TX SCH ×2 (07:14→19:15)
[2021-12-28] MEDS: DORNASE ALFA 2.5 MG/2.5 ML VIAL RESP TX SCH ×2 (07:26→19:25)
[2021-12-28] MEDS: ASCORBIC ACID 500 MG TABLET PO SCH ×2 (10:12→20:57)
[2021-12-28] MEDS: INSULIN LISPRO 100 UNIT/ML SUBCUT SCH ×4 (10:12→21:22)
[2021-12-28] MEDS: guaiFENesin/DM ER 600-30 MG TABLET PO SCH ×2 (10:12→20:56)
[2021-12-28] MEDS: FERROUS SULFATE 325 MG TABLET PO SCH ×3 (10:12→20:57)
[2021-12-28] MEDS: FLUCONAZOLE 100 MG TABLET PO SCH (10:12)
[2021-12-28] MEDS: PANTOPRAZOLE 40 MG TABLET PO SCH ×2 (10:12→20:57)
[2021-12-28] MEDS: FERRIC GLUCONATE COMPLEX 125 MG in SODIUM CHLORIDE 0.9% 100 ML IV SCH (10:12)
[2021-12-28] MEDS: ASPIRIN EC 81 MG TABLET PO SCH (10:12)
[2021-12-28] MEDS: GABAPENTIN 300 MG CAPSULE PO SCH ×2 (10:12→20:57)
[2021-12-28] MEDS: BENZONATATE 100 MG CAPSULE PO SCH ×3 (10:12→20:57)
[2021-12-28] MEDS: NEBIVOLOL 10 MG TABLET PO SCH (10:12)
[2021-12-28] MEDS: MONTELUKAST 10 MG TABLET PO SCH (10:12)
[2021-12-28] MEDS: INSULIN GLARGINE 100 UNIT/ML SUBCUT SCH (11:15)
[2021-12-28] MEDS ORDERED: HEPARIN 5,000 UNIT/1 ML VIAL SUBCUT ONE ×2 (12:30→21:00)
[2021-12-28 13:15] LABS: Albumin 2.8 G/DL (3.4-5.0); Total Protein 5.4 G/DL (6.4-8.2)
[2021-12-28] MEDS: ROSUVASTATIN 10 MG TABLET PO SCH (20:57)
[2021-12-29] MEDS: ALBUTEROL/IPRATROPIUM 3 ML NEB RESP TX SCH ×4 (00:18→18:56)
[2021-12-29 04:48] LABS: Basophils % 0.1 % (0.0-0.8); Hematocrit 33.3 VOL% (35.7-47.0); Hemoglobin 10.2 GM/DL (12.0-16.0); Immature Granulocytes % 0.6 %; Immature Granulocytes Absolute 0.07 #; Lymphocytes # 0.1 10*3/uL (1.4-4.0); Lymphocytes % 0.8 % (21.3-54.2); Mean Corpuscular HGB Conc 30.6 GM/DL (32-36); Mean Corpuscular Volume 98.5 FL (87-102); Mean Platelet Volume 10.2 FL (9.6-12.0); Monocytes # 0.2 10*3/uL (0.11-0.8); Monocytes % 1.8 % (1.7-12.7); Neutrophils % 96.7 % (38.7-73.9); Platelet Count 156 T/CUMM (130-400); Red Blood Count 3.38 MC/CUMM (3.8-5.5); Red Cell Distribution Width 15.8 % (9.3-17.3); White Blood Count 11.4 T/CUMM (4-12)
[2021-12-29] MEDS: SILDENAFIL 20 MG TABLET PO SCH ×3 (05:05→22:15)
[2021-12-29 05:11] LABS: Hypochromia Slight; Lymphocytes 1 % (20-55); Potassium 3.9 MMOL/L (3.5-5.1); Total Cells Counted 100
[2021-12-29 05:12] LABS: Macrocytosis Slight
[2021-12-29 05:15] LABS: Osmolality,Calculated 295.4 MOS/KG (273-304)
[2021-12-29] MEDS: LEVOTHYROXINE 125 MCG TABLET PO SCH (05:30)
[2021-12-29] MEDS: methylPREDNISolone SOD SUC 40 MG/1 ML VIAL IV SCH ×3 (05:30→22:15)
[2021-12-29 06:57] LABS: INR 1.1; PT Patient Result 12.4 SECS (10.5-12.0); Partial Thromboplastin Time 28.3 SECS (23.8-32.1)
[2021-12-29] MEDS: BUDESONIDE 0.5 MG/2 ML NEB RESP TX SCH ×2 (07:30→18:56)
[2021-12-29] MEDS: DORNASE ALFA 2.5 MG/2.5 ML VIAL RESP TX SCH ×2 (07:35→18:57)
[2021-12-29] MEDS: INSULIN LISPRO 100 UNIT/ML SUBCUT SCH ×4 (07:45→22:16)
[2021-12-29] MEDS ORDERED: LIDOCAINE 2% 20 ML VIAL RESP TX ONE (08:00)
[2021-12-29] MEDS ORDERED: LIDOCAINE 2% VISCOUS 100 ML BOTTLE SWISH/SPIT ONE (08:00)
[2021-12-29] MEDS ORDERED: LIDOCAINE 1% 20 ML VIAL MISC INJ ONE (08:00)
[2021-12-29] MEDS: ASCORBIC ACID 500 MG TABLET PO SCH ×2 (08:34→22:13)
[2021-12-29] MEDS: FLUCONAZOLE 100 MG TABLET PO SCH (08:34)
[2021-12-29] MEDS: MONTELUKAST 10 MG TABLET PO SCH (08:34)
[2021-12-29] MEDS: guaiFENesin/DM ER 600-30 MG TABLET PO SCH (08:34)
[2021-12-29] MEDS: NEBIVOLOL 10 MG TABLET PO SCH (08:34)
[2021-12-29] MEDS: FERROUS SULFATE 325 MG TABLET PO SCH ×3 (08:35→22:14)
[2021-12-29] MEDS: PANTOPRAZOLE 40 MG TABLET PO SCH ×2 (08:35→22:14)
[2021-12-29] MEDS: BENZONATATE 100 MG CAPSULE PO SCH ×3 (08:35→22:14)
[2021-12-29] MEDS: GABAPENTIN 300 MG CAPSULE PO SCH ×2 (08:35→22:13)
[2021-12-29] MEDS: INSULIN GLARGINE 100 UNIT/ML SUBCUT SCH (08:39)
[2021-12-29] MEDS: ASPIRIN EC 81 MG TABLET PO SCH (08:46)
[2021-12-29] MEDS: FERRIC GLUCONATE COMPLEX 125 MG in SODIUM CHLORIDE 0.9% 100 ML IV SCH (11:12)
[2021-12-29 13:59] LABS: Arterial Base Excess iSTAT 18 MMOL/L (-2.5-2.5); Arterial Bicarbonate iSTAT 44.2 MMOL/L (20-26); Arterial O2 Saturation iSTAT 92 % (95-100); Arterial PCO2 iSTAT 62 MM HG (35-48); Arterial PO2 iSTAT 63 MM HG (80-95); Arterial Total CO2 iSTAT 46 MMO/L (23-27); Arterial pH iSTAT 7.459 (7.35-7.45)
[2021-12-29 16:21] LABS: % Iron Saturation 80.9 % (18-50)
[2021-12-29 16:28] LABS: Folate 7.31 NG/ML (5.38-24.0)
[2021-12-29] MEDS: ROSUVASTATIN 10 MG TABLET PO SCH (22:13)
[2021-12-30] MEDS: ALBUTEROL/IPRATROPIUM 3 ML NEB RESP TX SCH ×4 (00:24→19:26)
[2021-12-30 05:55] LABS: Basophils % 0.2 % (0.0-0.8); Hematocrit 34.2 VOL% (35.7-47.0); Hemoglobin 10.5 GM/DL (12.0-16.0); Immature Granulocytes % 1.3 %; Immature Granulocytes Absolute 0.17 #; Lymphocytes # 0.1 10*3/uL (1.4-4.0); Lymphocytes % 0.8 % (21.3-54.2); Mean Corpuscular HGB Conc 30.7 GM/DL (32-36); Mean Platelet Volume 12.5 FL (9.6-12.0); Monocytes # 0.3 10*3/uL (0.11-0.8); Monocytes % 2.6 % (1.7-12.7); Neutrophils % 95.1 % (38.7-73.9); Platelet Count 100 T/CUMM (130-400); Red Blood Count 3.42 MC/CUMM (3.8-5.5); Red Cell Distribution Width 15.9 % (9.3-17.3); White Blood Count 12.6 T/CUMM (4-12)
[2021-12-30 05:58] LABS: INR 1.1; PT Patient Result 12.5 SECS (10.5-12.0); Partial Thromboplastin Time 26.5 SECS (23.8-32.1)
[2021-12-30 06:05] LABS: Osmolality,Calculated 293.4 MOS/KG (273-304); Potassium 4.1 MMOL/L (3.5-5.1)
[2021-12-30] MEDS: SILDENAFIL 20 MG TABLET PO SCH ×3 (06:07→21:22)
[2021-12-30] MEDS: methylPREDNISolone SOD SUC 40 MG/1 ML VIAL IV SCH ×3 (06:08→21:22)
[2021-12-30] MEDS: LEVOTHYROXINE 25 MCG TABLET PO SCH (06:09)
[2021-12-30 06:21] LABS: Total Cells Counted 100
[2021-12-30] MEDS: LEVOTHYROXINE 125 MCG TABLET PO SCH (06:26)
[2021-12-30] MEDS ORDERED: LIDOCAINE 2% 20 ML VIAL RESP TX ONE (08:00)
[2021-12-30] MEDS ORDERED: LIDOCAINE 1% 20 ML VIAL MISC INJ ONE (08:00)
[2021-12-30] MEDS ORDERED: LIDOCAINE 2% VISCOUS 100 ML BOTTLE SWISH/SPIT ONE (08:00)
[2021-12-30] MEDS: BUDESONIDE 0.5 MG/2 ML NEB RESP TX SCH ×2 (08:08→19:26)
[2021-12-30] MEDS: DORNASE ALFA 2.5 MG/2.5 ML VIAL RESP TX SCH ×2 (08:19→19:40)
[2021-12-30] MEDS: INSULIN LISPRO 100 UNIT/ML SUBCUT SCH ×4 (08:38→21:22)
[2021-12-30] MEDS ORDERED: MIDAZOLAM 2 MG/2 ML VIAL ONE (08:40)
[2021-12-30] MEDS ORDERED: GLUCAGON 1 MG VIAL IM PRN (11:53)
[2021-12-30] MEDS ORDERED: DEXTROSE 50% 25 GM/50 ML VIAL IV PRN (11:53)
[2021-12-30] MEDS: ASPIRIN EC 81 MG TABLET PO SCH (12:45)
[2021-12-30] MEDS: BENZONATATE 100 MG CAPSULE PO SCH ×3 (12:45→21:23)
[2021-12-30] MEDS: FLUCONAZOLE 100 MG TABLET PO SCH (12:53)
[2021-12-30] MEDS: FERROUS SULFATE 325 MG TABLET PO SCH ×3 (12:53→21:23)
[2021-12-30] MEDS: NEBIVOLOL 10 MG TABLET PO SCH (12:53)
[2021-12-30] MEDS: MONTELUKAST 10 MG TABLET PO SCH (12:54)
[2021-12-30] MEDS: FERRIC GLUCONATE COMPLEX 125 MG in SODIUM CHLORIDE 0.9% 100 ML IV SCH (12:54)
[2021-12-30] MEDS: INSULIN GLARGINE 100 UNIT/ML SUBCUT SCH (12:55)
[2021-12-30] MEDS: GABAPENTIN 300 MG CAPSULE PO SCH ×2 (13:06→21:22)
[2021-12-30] MEDS: ASCORBIC ACID 500 MG TABLET PO SCH ×2 (13:06→21:23)
[2021-12-30] MEDS: PANTOPRAZOLE 40 MG TABLET PO SCH ×2 (13:06→21:22)
[2021-12-30 13:25] LABS: Glucose,Pleural Fluid 233 MG/DL; LDH,Body Fluid 138 U/L; Total Protein,Body Fluid < 2.0 G/DL
[2021-12-30 15:06] LABS: Lymphocytes,Pleural Fluid 95 %; Monocytes,Pleural Fluid 5 %
[2021-12-30 15:09] LABS: RBC,Pleural Fluid 1954 T/CUMM
[2021-12-30] MEDS: ROSUVASTATIN 10 MG TABLET PO SCH (21:22)
[2021-12-31] MEDS: ALBUTEROL/IPRATROPIUM 3 ML NEB RESP TX SCH ×4 (01:06→19:20)
[2021-12-31 04:43] LABS: Basophils % 0.1 % (0.0-0.8); Hematocrit 33.7 VOL% (35.7-47.0); Hemoglobin 10.2 GM/DL (12.0-16.0); Immature Granulocytes % 1.6 %; Immature Granulocytes Absolute 0.19 #; Lymphocytes # 0.1 10*3/uL (1.4-4.0); Lymphocytes % 0.8 % (21.3-54.2); Mean Corpuscular HGB Conc 30.3 GM/DL (32-36); Mean Corpuscular Volume 99.7 FL (87-102); Mean Platelet Volume 10.6 FL (9.6-12.0); Monocytes # 0.3 10*3/uL (0.11-0.8); Monocytes % 2.5 % (1.7-12.7); Platelet Count 126 T/CUMM (130-400); Red Blood Count 3.38 MC/CUMM (3.8-5.5); White Blood Count 11.8 T/CUMM (4-12)
[2021-12-31 05:06] LABS: Band Neutrophils 1 % (0-10); Lymphocytes 3 % (20-55); Platelet Estimate Adequate; Total Cells Counted 100
[2021-12-31 05:08] LABS: Calcium 8.9 MG/DL (8.5-10.1); Potassium 4.1 MMOL/L (3.5-5.1)
[2021-12-31 05:09] LABS: Calcium 9.2 MG/DL (8.5-10.1); Osmolality,Calculated 294.4 MOS/KG (273-304); Potassium 4.1 MMOL/L (3.5-5.1)
[2021-12-31 05:11] LABS: Albumin 2.6 G/DL (3.4-5.0); Bilirubin,Direct 0.3 MG/DL (0.0-0.20); Bilirubin,Indirect 0.5 MG/DL (0.0-1.0); Bilirubin,Total 0.8 MG/DL (0.20-1.00)
[2021-12-31 05:19] LABS: Osmolality,Calculated 293.4 MOS/KG (273-304)
[2021-12-31] MEDS: LEVOTHYROXINE 125 MCG TABLET PO SCH (06:01)
[2021-12-31] MEDS: methylPREDNISolone SOD SUC 40 MG/1 ML VIAL IV SCH ×3 (06:01→23:07)
[2021-12-31] MEDS: SILDENAFIL 20 MG TABLET PO SCH ×3 (06:01→21:34)
[2021-12-31] MEDS: BUDESONIDE 0.5 MG/2 ML NEB RESP TX SCH ×2 (06:50→19:20)
[2021-12-31] MEDS: DORNASE ALFA 2.5 MG/2.5 ML VIAL RESP TX SCH ×2 (07:01→19:55)
[2021-12-31] MEDS: INSULIN LISPRO 100 UNIT/ML SUBCUT SCH ×4 (09:30→23:05)
[2021-12-31] MEDS: ASPIRIN EC 81 MG TABLET PO SCH (09:32)
[2021-12-31] MEDS: NEBIVOLOL 10 MG TABLET PO SCH (09:32)
[2021-12-31] MEDS: FLUCONAZOLE 100 MG TABLET PO SCH (09:32)
[2021-12-31] MEDS: FERROUS SULFATE 325 MG TABLET PO SCH ×3 (09:33→21:38)
[2021-12-31] MEDS: INSULIN GLARGINE 100 UNIT/ML SUBCUT SCH (09:34)
[2021-12-31] MEDS: FUROSEMIDE 20 MG TABLET PO SCH (09:34)
[2021-12-31] MEDS: PANTOPRAZOLE 40 MG TABLET PO SCH ×2 (09:35→21:34)
[2021-12-31] MEDS: GABAPENTIN 300 MG CAPSULE PO SCH ×2 (09:35→21:34)
[2021-12-31] MEDS: ASCORBIC ACID 500 MG TABLET PO SCH ×2 (09:35→21:34)
[2021-12-31] MEDS: BENZONATATE 100 MG CAPSULE PO SCH ×3 (09:36→21:34)
[2021-12-31] MEDS: MONTELUKAST 10 MG TABLET PO SCH (09:36)
[2021-12-31] MEDS: CHOLECALCIFEROL 1,000 UNIT TABLET PO SCH (09:36)
[2021-12-31] MEDS: acetaZOLAMIDE 250 MG TABLET PO SCH (09:38)
[2021-12-31] MEDS: FERRIC GLUCONATE COMPLEX 125 MG in SODIUM CHLORIDE 0.9% 100 ML IV SCH (09:40)
[2021-12-31] MEDS: ROSUVASTATIN 10 MG TABLET PO SCH (21:38)
[2021-12-31 22:05] LABS: Mucus,Urine Occasional /LPF (Occasional); RBC,Urine 292 /HPF (0-4); Squamous Epithelial Cell,Urine Occasional /HPF (0-10)
[2021-12-31 22:06] LABS: Bilirubin,Urine Negative (Negative); Blood, Urine Large mg/dL (Negative); Glucose,Urine (UA) Negative (Negative); Ketones,Urine Negative (Negative); Nitrite,Urine Negative (Negative); Protein,Urine 100 mg/dL (Negative); Urine Appearance Slightly Cloudy (Clear); Urine Color Yellow (Yellow); Urine Urobilinogen > 8.0 eU/dL (<2.0); Urine pH 8.5 (4.5-8.0)
[2022-01-01] MEDS: ALBUTEROL/IPRATROPIUM 3 ML NEB RESP TX SCH ×4 (00:40→19:05)
[2022-01-01 04:40] LABS: Arterial Base Excess iSTAT 13 MMOL/L (-2.5-2.5); Arterial Bicarbonate iSTAT 39.1 MMOL/L (20-26); Arterial O2 Saturation iSTAT 96 % (95-100); Arterial PCO2 iSTAT 60 MM HG (35-48); Arterial PO2 iSTAT 86 MM HG (80-95); Arterial Total CO2 iSTAT 41 MMO/L (23-27)
[2022-01-01 04:45] LABS: Basophils % 0.1 % (0.0-0.8); Hematocrit 32.5 VOL% (35.7-47.0); Hemoglobin 9.7 GM/DL (12.0-16.0); Immature Granulocytes % 0.8 %; Lymphocytes # 0.1 10*3/uL (1.4-4.0); Lymphocytes % 0.7 % (21.3-54.2); Mean Corpuscular HGB Conc 29.8 GM/DL (32-36); Mean Corpuscular Volume 100.3 FL (87-102); Mean Platelet Volume 11.5 FL (9.6-12.0); Monocytes # 0.3 10*3/uL (0.11-0.8); Monocytes % 2.2 % (1.7-12.7); Neutrophils % 96.2 % (38.7-73.9); Platelet Count 117 T/CUMM (130-400); Red Blood Count 3.24 MC/CUMM (3.8-5.5); Red Cell Distribution Width 15.9 % (9.3-17.3); White Blood Count 12.5 T/CUMM (4-12)
[2022-01-01 05:02] LABS: Osmolality,Calculated 295.5 MOS/KG (273-304)
[2022-01-01 05:06] LABS: Potassium 3.7 MMOL/L (3.5-5.1)
[2022-01-01 05:10] LABS: Lymphocytes 2 % (20-55); Total Cells Counted 100
[2022-01-01 05:11] LABS: Platelet Estimate Normal
[2022-01-01] MEDS: LEVOTHYROXINE 125 MCG TABLET PO SCH (06:04)
[2022-01-01] MEDS: SILDENAFIL 20 MG TABLET PO SCH ×3 (06:04→21:42)
[2022-01-01] MEDS: methylPREDNISolone SOD SUC 40 MG/1 ML VIAL IV SCH ×3 (06:06→21:43)
[2022-01-01] MEDS: BUDESONIDE 0.5 MG/2 ML NEB RESP TX SCH ×2 (07:10→19:05)
[2022-01-01] MEDS: DORNASE ALFA 2.5 MG/2.5 ML VIAL RESP TX SCH ×2 (07:10→19:15)
[2022-01-01] MEDS: GABAPENTIN 300 MG CAPSULE PO SCH ×2 (10:14→21:42)
[2022-01-01] MEDS: ASPIRIN EC 81 MG TABLET PO SCH (10:14)
[2022-01-01] MEDS: MONTELUKAST 10 MG TABLET PO SCH (10:15)
[2022-01-01] MEDS: FLUCONAZOLE 100 MG TABLET PO SCH (10:15)
[2022-01-01] MEDS: ASCORBIC ACID 500 MG TABLET PO SCH ×2 (10:15→21:42)
[2022-01-01] MEDS: CHOLECALCIFEROL 1,000 UNIT TABLET PO SCH (10:15)
[2022-01-01] MEDS: PANTOPRAZOLE 40 MG TABLET PO SCH ×2 (10:15→21:42)
[2022-01-01] MEDS: NEBIVOLOL 10 MG TABLET PO SCH (10:15)
[2022-01-01] MEDS: acetaZOLAMIDE 250 MG TABLET PO SCH (10:15)
[2022-01-01] MEDS: POTASSIUM CHLORIDE 10 MEQ TABLET PO SCH (10:16)
[2022-01-01] MEDS: FUROSEMIDE 20 MG TABLET PO SCH (10:16)
[2022-01-01] MEDS: FERROUS SULFATE 325 MG TABLET PO SCH ×3 (10:16→21:42)
[2022-01-01] MEDS: BENZONATATE 100 MG CAPSULE PO SCH ×3 (10:16→21:42)
[2022-01-01] MEDS: INSULIN LISPRO 100 UNIT/ML SUBCUT SCH ×4 (10:22→21:42)
[2022-01-01] MEDS: INSULIN GLARGINE 100 UNIT/ML SUBCUT SCH (10:23)
[2022-01-01] MEDS: LEVOFLOXACIN 250 MG TABLET PO SCH (15:39)
[2022-01-01 20:16] LABS: M. Tuberculosis PCR Result Negative (Negative); M. Tuberculosis PCR Source BRONCH WASH
[2022-01-01] MEDS: ROSUVASTATIN 10 MG TABLET PO SCH (21:42)
[2022-01-02] MEDS: ALBUTEROL/IPRATROPIUM 3 ML NEB RESP TX SCH ×3 (00:06→13:46)
[2022-01-02 05:02] LABS: Basophils % 0.1 % (0.0-0.8); Hematocrit 31.6 VOL% (35.7-47.0); Hemoglobin 9.6 GM/DL (12.0-16.0); Immature Granulocytes % 1.1 %; Immature Granulocytes Absolute 0.14 #; Lymphocytes # 0.1 10*3/uL (1.4-4.0); Lymphocytes % 0.8 % (21.3-54.2); Mean Corpuscular HGB Conc 30.4 GM/DL (32-36); Mean Corpuscular Volume 99.7 FL (87-102); Mean Platelet Volume 11.1 FL (9.6-12.0); Monocytes # 0.3 10*3/uL (0.11-0.8); Monocytes % 2.6 % (1.7-12.7); Neutrophils % 95.4 % (38.7-73.9); Platelet Count 112 T/CUMM (130-400); Red Blood Count 3.17 MC/CUMM (3.8-5.5); Red Cell Distribution Width 15.8 % (9.3-17.3); White Blood Count 12.9 T/CUMM (4-12)
[2022-01-02 05:17] LABS: Osmolality,Calculated 300.1 MOS/KG (273-304); Potassium 3.9 MMOL/L (3.5-5.1)
[2022-01-02 05:32] LABS: Band Neutrophils 1 % (0-10); Lymphocytes 3 % (20-55); Total Cells Counted 100
[2022-01-02] MEDS: SILDENAFIL 20 MG TABLET PO SCH ×2 (06:03→14:57)
[2022-01-02] MEDS: LEVOTHYROXINE 125 MCG TABLET PO SCH (06:03)
[2022-01-02] MEDS: methylPREDNISolone SOD SUC 40 MG/1 ML VIAL IV SCH ×2 (06:06→15:01)
[2022-01-02] MEDS: BUDESONIDE 0.5 MG/2 ML NEB RESP TX SCH (07:22)
[2022-01-02] MEDS: DORNASE ALFA 2.5 MG/2.5 ML VIAL RESP TX SCH (07:32)
[2022-01-02] MEDS ORDERED: INSULIN GLARGINE 100 UNIT/ML SUBCUT SCH (09:00)
[2022-01-02] MEDS: MONTELUKAST 10 MG TABLET PO SCH (09:52)
[2022-01-02] MEDS: PANTOPRAZOLE 40 MG TABLET PO SCH (09:52)
[2022-01-02] MEDS: POTASSIUM CHLORIDE 10 MEQ TABLET PO SCH (09:52)
[2022-01-02] MEDS: GABAPENTIN 300 MG CAPSULE PO SCH (09:52)
[2022-01-02] MEDS: FERROUS SULFATE 325 MG TABLET PO SCH ×2 (09:53→14:57)
[2022-01-02] MEDS: CHOLECALCIFEROL 1,000 UNIT TABLET PO SCH (09:53)
[2022-01-02] MEDS: BENZONATATE 100 MG CAPSULE PO SCH ×2 (09:53→14:57)
[2022-01-02] MEDS: FUROSEMIDE 20 MG TABLET PO SCH (09:53)
[2022-01-02] MEDS: NEBIVOLOL 10 MG TABLET PO SCH (09:53)
[2022-01-02] MEDS: ASCORBIC ACID 500 MG TABLET PO SCH (09:53)
[2022-01-02] MEDS: acetaZOLAMIDE 250 MG TABLET PO SCH (09:53)
[2022-01-02] MEDS: ASPIRIN EC 81 MG TABLET PO SCH (09:53)
[2022-01-02] MEDS: LEVOFLOXACIN 250 MG TABLET PO SCH (09:53)
[2022-01-02] MEDS: INSULIN LISPRO 100 UNIT/ML SUBCUT SCH ×2 (09:54→15:54)
[2022-01-02] MEDS ORDERED: DOXYCYCLINE HYCLATE 100 MG CAPSULE PO SCH (10:30)
[2022-01-02 15:35] VITALS: BP 125/53
== END 2022-01-02 18:20 | disposition home health service (06) | DRG 189 ==
LOC: N.ED 11:45 → SUATTDRO 15:34 → N.EDINP 15:34 → N.5E 16:33 → N.ICU 12-24 15:14 → N.5E 12-27 18:19
PROVIDERS: ADMIT Internal Medicine; ATTEND Internal Medicine